=== PATIENT | female | born 1990 | race Caucasian/White ===

== ENCOUNTER 2016-07-15 14:24 | Emergency (ER) | payer OTHER ==
[2016-07-15 15:20] LABS: BASOPHIL % 0.4 % (0.0-0.4); Granulocytes % 58.3 % (36.0-66.0); Mean Corpuscular Hemoglobin 29.9 pg (26-32); Mean Platelet Volume 10.5 fl (6-9.5); Monocytes % 4.3 % (0.0-12.0); Platelet Count 219 K/mm3 (150-450); Red Blood Count 4.45 M/mm3 (4.1-5.4); White Blood Count 8.4 K/mm3 (4.0-10.5)
[2016-07-15 15:40] LABS: Collection Type CATH
[2016-07-15 15:41] LABS: COMPLETE URINE MICROSCOPIC? NO; Clue Cells Few
[2016-07-15 15:42] LABS: Bacteria Many; Trichomonas None Seen; Yeast None Seen
[2016-07-15] MEDS ORDERED: Pepcid 20 MG VIAL IV ONE (15:42)
[2016-07-15] MEDS ORDERED: solu-MEDROL 125 MG IV ONE (15:42)
[2016-07-15] MEDS ORDERED: EPINEPHRINE 1:1000 1 ML AMP IM ONE (15:42)
[2016-07-15] MEDS ORDERED: BENADRYL 50 MG/ML IV ONE (15:42)
[2016-07-15] MEDS ORDERED: Sodium Chloride 0.9% 1000 ML 1,000 ML IV STA (15:42)
[2016-07-15] MEDS ORDERED: ROCEPHIN 1 Gm-D5w 50 ml Bag** 50 ML IV ONE (15:47)
[2016-07-15] MEDS ORDERED: TORAdol 30 mg Injection IV ONE (15:48)
[2016-07-15] MEDS ORDERED: Rocephin 1000 MG INJ IM ONE (16:00)
[2016-07-15] MEDS ORDERED: TORAdol 30 mg Injection IM ONE (16:00)
[2016-07-15] MEDS ORDERED: Rocephin 1000 MG INJ ONE (16:05)
[2016-07-15] MEDS ORDERED: TORAdol 30 mg Injection ONE (16:05)
[2016-07-15] MEDS ORDERED: XYLOCAINE 1% HCL 20 ML MDV ONE (16:06)
--- NOTE | 2016-07-15 16:09 | ERPHSYRPT ---
- History of Present Illness Time Seen by Provider: 07/15/16 14:58 Source: patient Patient Subjective Stated Complaint: pt states 1 1/2 hrs ago she began having pelvic pain. denies any dysuria. Triage Nursing Assessment: pt pink, warm, dry. abdomen soft nontender. Physician History: CC: pelvic pain Hx: 25 y/o patient of Dr Forbes/M[facility]ela. She has mirena IUD in place. Had intercourse today. She has pain in pelvic area. Some vaginal discharge. No fever or chills. No V/D. Burning with urination. She has had prior gc/ct. Timing/Duration: today Activites at Onset: sexual activity Severity of Pain-Max: moderate Severity of Pain-Current: moderate Allergies/Adverse Reactions: miconazole nitrate [From Monistat 3] Allergy (Intermediate, Verified 07/15/16 14 :42) Swelling Home Medications: Ibuprofen 800 mg PO BID 04/07/16 [History] Oxycodone HCl [Oxaydo] 7.5 mg PO QID 04/07/16 [History] Promethazine HCl 12.5 mg PO UD 04/07/16 [History] Tizanidine HCl 4 mg [Zanaflex 4 MG] 4 mg PO BID 04/07/16 [History] Buprenorphine [Butrans] 1 each TD UD 07/15/16 [History] Hydroxychloroquine Sulfate [Plaquenil] 100 mg PO DAILY 07/15/16 [History] Hx Tetanus, Diphtheria Vaccination/Date Given: Yes (up to date) Hx Influenza Vaccination/Date Given: No Hx Pneumococcal Vaccination/Date Given: No - Review of Systems Constitutional: No Fever, No Chills Eyes: No Symptoms Ears, Nose, & Throat: No Symptoms Respiratory: No Cough Cardiac: No Chest Pain Abdominal/Gastrointestinal: Abdominal Pain (pelivc), No Nausea, No Vomiting, No Diarrhea Genitourinary Symptoms: Dysuria, Vaginal Discharge, No Skin: No Rash Neurological: No Headache All Other Systems: Reviewed and Negative - Past Medical History Pertinent Past Medical History: Yes Neurological History: No Pertinent History ENT History: No Pertinent History Cardiac History: No Pertinent History Respiratory History: No Pertinent History Endocrine Medical History: No Pertinent History Musculoskeletal History: No Pertinent History GI Medical History: Pancreatitis History: No Pertinent History Psycho-Social History: No Pertinent History Female Reproductive Disorders: No Pertinent History, Cervical Cancer Other Medical History: lupus - Past Surgical History Past Surgical History: Yes Neuro Surgical History: No Pertinent History Cardiac: No Pertinent History Respiratory: No Pertinent History Gastrointestinal: Cholecystectomy Genitourinary: No Pertinent History Musculoskeletal: No Pertinent History Female Surgical History: Other Other Surgical History: LEEP Procedure;. CERVICAL ABLATION - Social History Smoking Status: Current every day smoker How long have you smoked: 11 Exposure to second hand smoke: Yes Alcohol Use: Socially Drug Use: none Patient Lives Alone: No Significant Family History: no pertinent family hx - Female History Hx Last Menstrual Period: end jun 2016 Hx Now: Yes - Nursing Vital Signs Nursing Vital Signs: Initial Vital Signs Temperature 99.2 F Temperature Source Oral Pulse Rate 85 Respiratory Rate 18 Blood Pressure [Right Arm] 122/76 Pain Intensity 6 - Physical Exam General Appearance: alert Eye Exam: PERRL/EOMI Ears, Nose, Throat Exam: normal ENT inspection, moist mucous membranes Cardiovascular Exam: regular rate/rhythm Gastrointestinal/Abdomen Exam: soft, No tenderness, No distention Pelvic Exam: normal external exam, other (copious watery saunders vaginal discharge) Extremity Exam: normal inspection, normal range of motion Neurologic Exam: alert, oriented x 3, cooperative, sensation nml, No motor deficits Skin Exam: warm, dry, No rash SpO2 Interpretation: normal SpO2: 98 Oxygen Delivery: Room Air - Course Nursing assessment & vital signs reviewed: Yes - Radiology Ultrasound Exam pelvic Ultrasound: Other (culdesac fluid, IUD inside uterus but appears flipped, normal tubes and ovaries) Ordered Tests: Active Orders 24 hr Category Date Time Status Supervisor Hydrochloric Area STAT Care 07/15/16 15:42 Inactive IV Insertion STAT Care 07/15/16 15:42 Inactive Pulse Oximetry (ED) STAT Care 07/15/16 15:42 Inactive cath [Cath for Specimen-Straight] STAT Care 07/15/16 15:20 Active PELVIS TRANS VAGINAL [US] Stat Exams 07/15/16 15:14 Ordered CBC W DIFF Stat Lab 07/15/16 15:10 Completed CULTURE,URINE Stat Lab 07/15/16 15:25 Received HCG QUALITATIVE,SERUM Stat Lab 07/15/16 15:10 Completed Lactic Acid Urgent Lab 07/15/16 14:53 Completed UA Stat Lab 07/15/16 15:25 Results Wet Prep Stat Lab 07/15/16 15:25 Results Medication Summary Discontinued Medications Generic Name Dose Route Start Last Admin Trade Name Terrie PRN Reason Stop Dose Admin Diphenhydramine HCl 25 mg 07/15/16 15:42 Benadryl 50 Mg/Ml IV 07/15/16 15:43 STAT ONE Epinephrine HCl 0.3 mg 07/15/16 15:42 Epinephrine 1:1000 1 Ml Amp IM 07/15/16 15:43 STAT ONE Famotidine 20 mg 07/15/16 15:42 Pepcid 20 Mg Vial IV 07/15/16 15:43 STAT ONE Sodium Chloride 1,000 mls @ 999 mls/hr 07/15/16 15:42 Sodium Chloride 0.9% 1000 Ml IV 07/15/16 16:42 .Q1H1M STA Ceftriaxone Sodium/Dextrose 50 mls @ 100 mls/hr 07/15/16 15:47 Rocephin 1 Gm-D5w 50 Ml Bag IV 07/15/16 16:16 STAT ONE Ketorolac Tromethamine 30 mg 07/15/16 15:48 Toradol 30 Mg Injection IV 07/15/16 15:49 STAT ONE Ketorolac Tromethamine 60 mg 07/15/16 16:00 Toradol 30 Mg Injection IM 07/15/16 16:01 STAT ONE Methylprednisolone Sodium Succinate 125 mg 07/15/16 15:42 Solu-Medrol 125 Mg IV 07/15/16 15:43 STAT ONE Lab/Rad Data: Laboratory Result Diagrams 07/15/16 15:10 Laboratory Results 07/15/16 07/15/16 07/15/16 Range/Units 15:25 15:10 15:10 WBC 8.4 (4.0-10.5) K/mm3 RBC 4.45 (4.1-5.4) M/mm3 Hgb 13.3 (12.0-16.0) gm/dl Hct 39.6 (35-47) % MCV 89.0 (78-100) fl MCH 29.9 (26-32) pg MCHC 33.6 (32-36) g/dl RDW 12.0 (11.5-14.0) % Plt Count 219 (150-450) K/mm3 MPV 10.5 H (6-9.5) fl Gran % 58.3 (36.0-66.0) % Lymphocytes % 35.0 (24.0-44.0) % Monocytes % 4.3 (0.0-12.0) % Eosinophils % 2.0 (0.00-5.0) % Basophils % 0.4 (0.0-0.4) % Basophils # 0.03 (0-0.4) Lactic Acid (0.4-2.0) Serum , Qual NEGATIVE (Negative) Ur Collection Type CATH Urine Color YELLOW (YELLOW) Urine Appearance CLEAR (CLEAR) Urine pH 6.0 (5-6) Ur Specific [place] >=1.030 (1.005-1.025) Urine Protein NEGATIVE (Negative) Urine Glucose (UA) NEGATIVE (NEGATIVE) mg/dL Urine Ketones NEGATIVE (NEGATIVE) Urine Nitrite NEGATIVE (NEGATIVE) Urine Bilirubin NEGATIVE (NEGATIVE) Urine Urobilinogen 0.2 (0-1) mg/dL Urine WBC (Auto) NEGATIVE (NEGATIVE) Urine RBC (Auto) NEGATIVE (0-5) Murray/ul WBC (Wet Prep) Pending RBC (Wet Prep) Pending Epi Cells (Wet Prep) Few Bacteria (Wet Prep) Many Clue Cells (Wet Prep) Few Trichomonas (Wet Prep) None Seen Budding Yeast (Wet Prp) None Seen Specimen Received 07/15/16 1540 07/15/16 Range/Units 14:53 WBC (4.0-10.5) K/mm3 RBC (4.1-5.4) M/mm3 Hgb (12.0-16.0) gm/dl Hct (35-47) % MCV (78-100) fl MCH (26-32) pg MCHC (32-36) g/dl RDW (11.5-14.0) % Plt Count (150-450) K/mm3 MPV (6-9.5) fl Gran % (36.0-66.0) % Lymphocytes % (24.0-44.0) % Monocytes % (0.0-12.0) % Eosinophils % (0.00-5.0) % Basophils % (0.0-0.4) % Basophils # (0-0.4) Lactic Acid 0.9 (0.4-2.0) Serum , Qual (Negative) Ur Collection Type Urine Color (YELLOW) Urine Appearance (CLEAR) Urine pH (5-6) Ur Specific [place] (1.005-1.025) Urine Protein (Negative) Urine Glucose (UA) (NEGATIVE) mg/dL Urine Ketones (NEGATIVE) Urine Nitrite (NEGATIVE) Urine Bilirubin (NEGATIVE) Urine Urobilinogen (0-1) mg/dL Urine WBC (Auto) (NEGATIVE) Urine RBC (Auto) (0-5) Murray/ul WBC (Wet Prep) RBC (Wet Prep) Epi Cells (Wet Prep) Bacteria (Wet Prep) Clue Cells (Wet Prep) Trichomonas (Wet Prep) Budding Yeast (Wet Prp) Specimen Received - Progress Progress Note: 07/15/16 16:08 IM rocphin and toradol given. ADvised no intercourse. Rx flagyl and doxycycline. 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 Counseled pt/family regarding: diagnosis, need for follow-up - Departure Time of Disposition: 16:09 Departure Disposition: Home Clinical Impression: PID (acute pelvic inflammatory disease) Mechanical complication due to intrauterine contraceptive device Qualifiers: Mechanical complication type: other Encounter type: initial encounter Qualified Code(s): T83.39XA - Other mechanical complication of intrauterine contraceptive device, initial encounter Condition: Stable Critical Care Time: No Referrals: SAHIL FORBES MD [Primary Care Provider] - [facility] [NON-STAFF PHY W/O PRIVILEGES] - Instructions: Pelvic Inflammatory Disease Additional Instructions: No intercourse. Rx doxycycline. Rx flagyl. Ibuprofen for pain. You need to see gynecology next week for follow up. Prescriptions: Doxycycline Hyclate 100 mg [Vibramycin 100 MG] 100 mg PO BID #28 tab Metronidazole 500 mg [Flagyl 500 MG] 500 mg PO BID #28 tablet
[2016-07-15 16:23] VITALS: BP 124/60; PULSE 70; O2SAT 100
[2016-07-15 17:12] LABS: CHLAMYDIA DNA NEGATIVE
--- NOTE | 2016-07-15 22:36 | XRAY ---
Indication: Pain. Two-dimensional transvaginal only pelvic ultrasound was performed. Comparison: None Uterus is again anteverted today measuring 7.6 x 3.2 x 4.3 cm and appears homogeneous in echogenicity. There remains a IUD in the endometrial cavity with the distal portion in the fundus. No endometrial cavity mass or fluid collection. Right ovary measures 4.2 x 1.8 x 3.1 cm and the left measures 3.4 x 2.3 x 3.1 cm. Normal follicular cysts and perfusion bilaterally. No suspicious solid adnexal mass. Small cul-de-sac fluid presumed from ruptured/leaking cyst. Impression: New cul-de-sac fluid presumed from ruptured/leaking cyst. Remaining ovaries and uterus unremarkable again with IUD in situ. Comment: Preliminary report was given.
== END 2016-07-15 16:23 | disposition home or self-care (01) ==
LOC: ED 14:24
DX: N73.9 Female pelvic inflammatory disease, unspecified (principal); T83.39XA Other mechanical complication of intrauterine contraceptive device, initial encounter
CPT/HCPCS: 36415; 76830; 81002; 83605; 84703; 85025; 87086; 87210; 87490; 87590; 96372; 99284; J0696; J1885; P9612

== ENCOUNTER 2016-08-17 11:12 | Emergency (ER) | payer OTHER ==
[2016-08-17 11:17] VITALS: O2SAT 97
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
[2016-08-17 12:41] VITALS: BP 129/83; PULSE 82
== END 2016-08-17 12:40 | disposition home or self-care (01) ==
LOC: ED 11:12
DX: S39.012A Strain of muscle, fascia and tendon of lower back, initial encounter (principal); V63.5XXA Driver of heavy transport vehicle injured in collision with car, pick-up truck or van in traffic accident, initial encounter; M54.5 Low back pain
CPT/HCPCS: 72100; 72170; 80307; 99283

== ENCOUNTER 2017-02-21 16:12 | Emergency (ER) | payer OTHER ==
[2017-02-21] MEDS ORDERED: TORAdol 30 mg Injection IM ONE (16:29)
[2017-02-21] MEDS ORDERED: TORAdol 30 mg Injection ONE (16:32)
--- NOTE | 2017-02-21 16:34 | ERPHSYRPT ---
- History of Present Illness Time Seen by Provider: 02/21/17 16:26 Source: patient Exam Limitations: no limitations Patient Subjective Stated Complaint: PT REPORTS SUDDEN ONSET OF A POP IN HER RIGHT JAW WITH SEVERE PAIN-DENIES INJURY-DENIES ILLNESS Triage Nursing Assessment: PT FLUSHED WARM ET YOQ-YAHMA-ME HOLDING RIGHT JAW BUT NO S/S OF INJURY-NO DEFORMITY-NO BRUISING OR ABRASIONS Physician History: 26-year-old white female with history of pancreatitis cervical cancer lupus. Arrives with complaint of sudden onset of pain in the right side of her face and jaw symptoms while she was sleeping. Patient states she felt a pop and then began having the pain. She has pain with opening and closing her jaw. Past medical history includes pancreatitis, cervical cancer, lupus. Past surgical history includes cholecystectomy, LEEP, cervical ablation. Patient does see a pain weight control lecturer and takes belbucca Timing/Duration: today Severity: moderate Modifying Factors: Improves With: nothing Associated Symptoms: No nausea, No vomiting, No abdominal pain, No shortness of breath, No heartburn, No diaphoresis, No cough, No chills, No chest pain, No fever, No headaches, No loss of appetite, No malaise, No rash, No syncope, No seizure, No weakness Allergies/Adverse Reactions: codeine Allergy (Intermediate, Verified 02/21/17 16:18) Rash miconazole nitrate [From Monistat 3] Allergy (Intermediate, Verified 02/21/17 16 :18) Swelling Home Medications: Ibuprofen 800 mg PO BID PRN 04/07/16 [History] Promethazine HCl 12.5 mg PO UD PRN 04/07/16 [History] Tizanidine HCl 4 mg [Zanaflex 4 MG] 4 mg PO BID PRN 04/07/16 [History] Buprenorphine HCl [Belbuca] 450 mcg BC UD 02/21/17 [History] Hx Tetanus, Diphtheria Vaccination/Date Given: Yes Hx Influenza Vaccination/Date Given: No Hx Pneumococcal Vaccination/Date Given: No Immunizations Up to Date: Yes - Review of Systems Constitutional: No Fever, No Chills Eyes: No Symptoms Ears, Nose, & Throat: Mouth Pain, Other (pain right side of mouth and jaw), No Ear Pain, No Ear Discharge, No Hearing Changes, No Tinnitus, No Nose Pain, No Nose Congestion, No Nose Discharge, No Sinus Drainage, No Epistaxis, No Mouth Swelling, No Loose Teeth, No Throat Pain, No Throat Swelling, No Hoarse, No Painful Swallowing, No Snoring, No Stridor Respiratory: No Cough, No Dyspnea Cardiac: No Chest Pain, No Edema, No Syncope Abdominal/Gastrointestinal: No Abdominal Pain, No Nausea, No Vomiting, No Diarrhea Genitourinary Symptoms: No Dysuria Musculoskeletal: No Back Pain, No Neck Pain Skin: No Rash Neurological: No Dizziness, No Focal Weakness, No Sensory Changes Psychological: No Symptoms Endocrine: No Symptoms All Other Systems: Reviewed and Negative - Past Medical History Pertinent Past Medical History: Yes Neurological History: No Pertinent History ENT History: No Pertinent History Cardiac History: No Pertinent History Respiratory History: No Pertinent History Endocrine Medical History: No Pertinent History Musculoskeletal History: No Pertinent History GI Medical History: Pancreatitis History: No Pertinent History Psycho-Social History: No Pertinent History Female Reproductive Disorders: No Pertinent History, Cervical Cancer Other Medical History: lupus - Past Surgical History Past Surgical History: Yes Neuro Surgical History: No Pertinent History Cardiac: No Pertinent History Respiratory: No Pertinent History Gastrointestinal: Cholecystectomy Genitourinary: No Pertinent History Musculoskeletal: No Pertinent History Female Surgical History: Other Other Surgical History: LEEP Procedure;. CERVICAL ABLATION - Social History Smoking Status: Current every day smoker How long have you smoked: 11 Exposure to second hand smoke: Yes Alcohol Use: Socially Drug Use: none Patient Lives Alone: No Significant Family History: no pertinent family hx - Female History Hx Last Menstrual Period: 2 WKS AGO Hx Now: Yes - Nursing Vital Signs Nursing Vital Signs: Initial Vital Signs Temperature 98.7 F 02/21/17 16:13 Pulse Rate 97 H 02/21/17 16:13 Respiratory Rate 20 02/21/17 16:13 Blood Pressure 111/48 02/21/17 16:13 O2 Sat by Pulse Oximetry 98 02/21/17 16:13 Pain Scale Pain Intensity 5 - Physical Exam General Appearance: moderate distress, alert Eye Exam: PERRL/EOMI, eyes nml inspection Ears, Nose, Throat Exam: TMs normal, pharynx normal, other (right side of jaw and face tender with palpation and opening and closing jaw no clicks) Neck Exam: normal inspection, non-tender, supple, full range of motion Respiratory Exam: normal breath sounds, lungs clear, No respiratory distress Cardiovascular Exam: regular rate/rhythm, normal heart sounds, normal peripheral pulses Gastrointestinal/Abdomen Exam: soft, normal bowel sounds, No tenderness, No mass Back Exam: normal inspection, normal range of motion, No CVA tenderness, No vertebral tenderness Extremity Exam: normal inspection, normal range of motion, pelvis stable Neurologic Exam: alert, oriented x 3, cooperative, normal mood/affect, nml cerebellar function, nml station & gait, sensation nml, No motor deficits Skin Exam: normal color, warm, dry, No rash Lymphatic Exam: No adenopathy SpO2 Interpretation: normal (98%) SpO2: 98 Oxygen Delivery: Room Air - Course Nursing assessment & vital signs reviewed: Yes - Radiology Exams Other X-ray Interpretation: Discussed w/ radiologist (x-ray of the mandible: 4 view of the mandible demonstrates crowding of the upper posterior molar teeth bilaterally. No other bony, articular, or soft tissue abnormalities) Ordered Tests: Active Orders 24 hr Category Date Time Status MANDIBLE (MINIMUM 4 VIEWS) Stat Exams 02/21/17 Completed Medication Summary Discontinued Medications Generic Name Dose Route Start Last Admin Trade Name Terrie PRN Reason Stop Dose Admin Ketorolac Tromethamine 60 mg 02/21/17 16:29 02/21/17 16:38 Toradol 30 Mg Injection IM 02/21/17 16:30 60 mg STAT ONE Administration Ketorolac Tromethamine Confirm 02/21/17 16:32 Toradol 30 Mg Injection Administered 02/21/17 16:33 Dose 60 mg .ROUTE .STK-MED ONE Morphine Sulfate 4 mg 02/21/17 17:14 02/21/17 17:17 Morphine Sulfate 4 Mg Inj IV 02/21/17 17:15 4 mg STAT ONE Administration Morphine Sulfate Confirm 02/21/17 17:16 Morphine Sulfate 4 Mg Inj Administered 02/21/17 17:17 Dose 4 mg .ROUTE .STK-MED ONE - Progress Progress: improved Progress Note: 02/21/17 17:05 26-year-old white female with history of pancreatitis cervical cancer lupus Arrives with sudden onset of pain in the right side of her jaw and right face she states she felt a pop been experiencing this pain. Patient is given Toradol in the emergency room patient is onBelbucca from her pain weight control lecturer. Patient does states she is starting to feel better after receiving the Toradol. She states she has a temporary filling in one of her teeth. X-rays of her mandible show crowding of the upper posterior molar teeth bilaterally no other bony, articular, or soft tissue abnormalities are noted. I do not see any obvious tooth fractures. Patient does state that she had a temporary filling placed by her dentist, she states that she plans to see her dentist on 2 days from now Will plan to discharge patient. Cold packs to areas posteriorly Pain medication as prescribed by your pain weight control lecturer. Patient also will be advised to take Advil (OTC) 2-3 tablets orally every 6 hours with food as needed. Patient was offered morphine injection here in the emergency room she does not want this. - Departure Time of Disposition: 17:08 Departure Disposition: Home Clinical Impression: Jaw pain Condition: Fair Critical Care Time: No Referrals: SAHIL FORBES MD [Primary Care Provider] - Additional Instructions: Return home. Cold packs to areas 24-48 hours (externally) Advil OTC 2-3 tablets orally every 6 hours as needed Balbucca as prescribed by your pain weight control lecturer or family . Follow-up with your dentist. Return for acute distress or for severe symptoms soft foods 48 hours
--- NOTE | 2017-02-21 17:00 | XRAY ---
Indication: Right mandibular pain. No known injury. Comparison: None 4 views of the mandible demonstrates crowding of the upper posterior molar teeth bilaterally. No other bony, articular, or soft tissue abnormalities.
[2017-02-21] MEDS ORDERED: MORPHINE SULFATE 4 MG INJ IV ONE (17:14)
[2017-02-21] MEDS ORDERED: MORPHINE SULFATE 4 MG INJ ONE (17:16)
[2017-02-21 17:44] VITALS: BP 134/66; PULSE 90
[2017-02-21 18:17] VITALS: O2SAT 98
== END 2017-02-21 18:05 | disposition home or self-care (01) ==
LOC: ED 16:12
DX: R68.84 Jaw pain (principal)
CPT/HCPCS: 70110; 96372; 96374; 99284; J1885; J2270

== ENCOUNTER 2017-03-22 19:03 | Emergency (ER) | payer OTHER ==
--- NOTE | 2017-03-22 19:38 | ERPHSYRPT ---
- History of Present Illness Time Seen by Provider: 03/22/17 19:31 Historian: patient Exam Limitations: no limitations Patient Subjective Stated Complaint: pt co no bm for a month, and unable to void since last night, pt has had constipation before. has surg last week by dr blackman Triage Nursing Assessment: pt alert, walked in, resp easy,skin w/d pink.abd pain , no fever, Physician History: This 26-year-old white female with history of pancreatitis, cervical cancer, lupus, constipation She arrives with complaints that she has not had a bowel movement for a month she states she's been unable to urinate since yesterday. Patient has no vomiting no fevers is not complaining of abdominal pain. Past medical history includes pancreatitis, cervical cancer, lupus, constipation. Past surgical history includes LEEP, cervical ablation, patient has had recent cystectomy for ovarian cyst. Timing/Duration: other (patient states no bowel movement for a month, no urine since yesterday) Activities at Onset: none Severity of Pain-Max: mild Severity of Pain-Current: none Modifying Factors: Improves With: nothing Associated Symptoms: No back, No chest pain, No diaphoresis, No diarrhea, No fever/chills, No fatigue, No headache, No heartburn, No loss of appetite, No nausea, No neck pain, No rash, No shortness of breath, No syncope, No vomiting Previous symptoms: same symptoms as today Allergies/Adverse Reactions: codeine Allergy (Intermediate, Verified 03/22/17 19:17) Rash miconazole nitrate [From Monistat 3] Allergy (Intermediate, Verified 03/22/17 19 :17) Swelling buprenorphine [From Butrans] Allergy (Verified 03/22/17 19:17) Home Medications: Promethazine HCl 12.5 mg PO UD PRN 04/07/16 [History] Ondansetron HCl [Zofran] 4 mg DAILY 03/22/17 [History] Hx Tetanus, Diphtheria Vaccination/Date Given: Yes Hx Influenza Vaccination/Date Given: No Hx Pneumococcal Vaccination/Date Given: No Immunizations Up to Date: Yes - Review of Systems Constitutional: No Fever, No Chills Eyes: No Symptoms Ears, Nose, & Throat: No Symptoms Respiratory: No Cough, No Dyspnea Cardiac: No Chest Pain, No Edema, No Syncope Abdominal/Gastrointestinal: Constipation Genitourinary Symptoms: No Dysuria Musculoskeletal: No Back Pain, No Neck Pain Skin: No Rash Neurological: No Dizziness, No Focal Weakness, No Sensory Changes Psychological: No Symptoms Endocrine: No Symptoms All Other Systems: Reviewed and Negative - Past Medical History Pertinent Past Medical History: Yes Neurological History: No Pertinent History ENT History: No Pertinent History Cardiac History: No Pertinent History Respiratory History: No Pertinent History Endocrine Medical History: No Pertinent History Musculoskeletal History: No Pertinent History GI Medical History: Pancreatitis, Other History: No Pertinent History Psycho-Social History: No Pertinent History Female Reproductive Disorders: No Pertinent History, Cervical Cancer Other Medical History: lupus, constipation - Past Surgical History Past Surgical History: Yes Neuro Surgical History: No Pertinent History Cardiac: No Pertinent History Respiratory: No Pertinent History Gastrointestinal: Cholecystectomy Genitourinary: No Pertinent History Musculoskeletal: No Pertinent History, Amputation Female Surgical History: Other Other Surgical History: LEEP Procedure;. CERVICAL ABLATION - Social History Smoking Status: Current every day smoker How long have you smoked: 11 Exposure to second hand smoke: Yes Alcohol Use: Socially Drug Use: none Patient Lives Alone: No Significant Family History: no pertinent family hx - Female History Hx Last Menstrual Period: feb Hx Now: Yes - Nursing Vital Signs Nursing Vital Signs: Initial Vital Signs Temperature 97.9 F 03/22/17 19:11 Pulse Rate 68 03/22/17 19:11 Respiratory Rate 16 03/22/17 19:11 Blood Pressure 149/98 03/22/17 19:11 O2 Sat by Pulse Oximetry 98 03/22/17 19:11 Pain Scale Pain Intensity 5 - Physical Exam General Appearance: no apparent distress, alert Eye Exam: PERRL/EOMI, eyes nml inspection Ears, Nose, Throat Exam: normal ENT inspection, pharynx normal, moist mucous membranes Neck Exam: normal inspection, non-tender, supple, full range of motion Respiratory Exam: normal breath sounds, lungs clear, No respiratory distress Cardiovascular Exam: regular rate/rhythm, normal heart sounds Rectal Exam: normal rectal tone, other (normal rectal exam no stool obtained) Back Exam: normal inspection, normal range of motion, No CVA tenderness, No vertebral tenderness Extremity Exam: normal inspection, normal range of motion, pelvis stable Neurologic Exam: alert, oriented x 3, cooperative, normal mood/affect, nml cerebellar function, sensation nml, No motor deficits Skin Exam: normal color, warm, dry SpO2 Interpretation: normal (98%) SpO2: 98 Oxygen Delivery: Room Air - Radiology Exams Abdomen X-ray Interpretation: Reviewed by me, Other (3 view abdomen, mild fecal stasis , no obstruction, normal chest) Ordered Tests: Active Orders 24 hr Category Date Time Status Clean Catch Urine Specimen STAT Care 03/22/17 20:47 Active IV Insertion STAT Care 03/22/17 19:30 Active OBSTR/ACUTE ABDOMEN SERIES Stat Exams 03/22/17 20:38 Taken CBC W DIFF Stat Lab 03/22/17 19:40 Completed CMP Stat Lab 03/22/17 19:40 Completed HCG QUALITATIVE,SERUM Stat Lab 03/22/17 20:00 Completed UA W/RFX UR CULTURE Stat Lab 03/22/17 19:40 Completed Lab/Rad Data: Laboratory Result Diagrams 03/22/17 19:40 03/22/17 19:40 Laboratory Results 03/22/17 03/22/17 03/22/17 Range/Units 20:00 19:40 19:40 WBC (4.0-10.5) K/mm3 RBC (4.1-5.4) M/mm3 Hgb (12.0-16.0) gm/dl Hct (35-47) % MCV (78-100) fl MCH (26-32) pg MCHC (32-36) g/dl RDW (11.5-14.0) % Plt Count (150-450) K/mm3 MPV (6-9.5) fl Gran % (36.0-66.0) % Lymphocytes % (24.0-44.0) % Monocytes % (0.0-12.0) % Eosinophils % (0.00-5.0) % Basophils % (0.0-0.4) % Basophils # (0-0.4) Sodium 140 (136-145) mEq/L Potassium 3.8 (3.5-5.1) mEq/L Chloride 106 (98-107) mEq/L Carbon Dioxide 25.3 (21-32) mEq/L Anion Gap 12.2 (5-15) MEQ/L BUN 18 (9-20) mg/dL Creatinine 0.98 (0.55-1.30) mg/dl Estimated GFR > 60 ML/MIN Glucose 81 (70-110) MG/DL Calcium 9.0 (8.5-10.1) mg/dL Total Bilirubin 0.30 (0.2-1.0) mg/dL AST 21 (15-37) U/L ALT 43 (12-78) U/L Alkaline Phosphatase 98 (46-116) U/L Serum Total Protein 7.1 (6.4-8.2) gm/dL Albumin 4.2 (3.4-5.0) g/dL Serum , Qual NEGATIVE (Negative) Ur Collection Type CLEAN CATCH Urine Color YELLOW (YELLOW) Urine Appearance CLEAR (CLEAR) Urine pH 6.0 (5-6) Ur Specific [place] 1.015 (1.005-1.025) Urine Protein NEGATIVE (Negative) Urine Ketones NEGATIVE (NEGATIVE) Urine Blood NEGATIVE (0-5) Murray/ul Urine Nitrite NEGATIVE (NEGATIVE) Urine Bilirubin NEGATIVE (NEGATIVE) Urine Urobilinogen NORMAL (0-1) mg/dL Ur Leukocyte Esterase NEGATIVE (NEGATIVE) Urine Culture Reflexed NO (NO) Urine Glucose NEGATIVE (NEGATIVE) mg/dL Specimen Received 03/22/17 1940 03/22/17 Range/Units 19:40 WBC 15.0 H (4.0-10.5) K/mm3 RBC 4.87 (4.1-5.4) M/mm3 Hgb 14.5 (12.0-16.0) gm/dl Hct 44.0 (35-47) % MCV 90.3 (78-100) fl MCH 29.8 (26-32) pg MCHC 33.0 (32-36) g/dl RDW 12.7 (11.5-14.0) % Plt Count 231 (150-450) K/mm3 MPV 10.4 H (6-9.5) fl Gran % 73.8 H (36.0-66.0) % Lymphocytes % 21.5 L (24.0-44.0) % Monocytes % 3.7 (0.0-12.0) % Eosinophils % 0.8 (0.00-5.0) % Basophils % 0.2 (0.0-0.4) % Basophils # 0.03 (0-0.4) Sodium (136-145) mEq/L Potassium (3.5-5.1) mEq/L Chloride (98-107) mEq/L Carbon Dioxide (21-32) mEq/L Anion Gap (5-15) MEQ/L BUN (9-20) mg/dL Creatinine (0.55-1.30) mg/dl Estimated GFR ML/MIN Glucose (70-110) MG/DL Calcium (8.5-10.1) mg/dL Total Bilirubin (0.2-1.0) mg/dL AST (15-37) U/L ALT (12-78) U/L Alkaline Phosphatase (46-116) U/L Serum Total Protein (6.4-8.2) gm/dL Albumin (3.4-5.0) g/dL Serum , Qual (Negative) Ur Collection Type Urine Color (YELLOW) Urine Appearance (CLEAR) Urine pH (5-6) Ur Specific [place] (1.005-1.025) Urine Protein (Negative) Urine Ketones (NEGATIVE) Urine Blood (0-5) Murray/ul Urine Nitrite (NEGATIVE) Urine Bilirubin (NEGATIVE) Urine Urobilinogen (0-1) mg/dL Ur Leukocyte Esterase (NEGATIVE) Urine Culture Reflexed (NO) Urine Glucose (NEGATIVE) mg/dL Specimen Received - Progress Progress: improved Progress Note: 03/22/17 21:11 This patient states she has not had a bowel movement in 30 days she states she was unable to urinate yesterday. On physical examination abdomen is soft flat nontender normal bowel sounds. Rectal normal sphincter tone no stool palpated. Acute abdomen series nonobstructive pattern mild fecal stasis chest x-ray unremarkable. Labs urinalysis unremarkable CBC white count 15,000 hemoglobin 14.5 hematocrit 44 platelets 231 Chemistry within normal limits. Patient has had a recent abdominal surgery.. Abdomen does not appear to be acute. 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 Consider clear liquids only tonight. . - Departure Time of Disposition: 21:13 Departure Disposition: Home Clinical Impression: Difficulty urinating Constipation Qualifiers: Constipation type: unspecified constipation type Qualified Code(s): K59.00 - Constipation, unspecified Condition: Fair Critical Care Time: No Referrals: SAHIL FORBES MD [Primary Care Provider] - Instructions: Constipation Additional Instructions: Return home. Plenty of fluids clear fluids 24-48 hours if abdominal pain constipation. Continue Miralax, Dulcolax, Follow-up with your family doctor or bottling line operator call tomorrow to schedule appointment. Return for acute distress or for severe symptoms.
[2017-03-22 19:46] LABS: Collection Type CLEAN CATCH
[2017-03-22 19:48] LABS: ADD URINE CULTURE? NO (NO); Bilirubin NEGATIVE (NEGATIVE); Blood NEGATIVE Ery/ul (0-5); COMPLETE URINE MICROSCOPIC? NO; Glucose NEGATIVE (NEGATIVE); Leukocyte Esterase NEGATIVE (NEGATIVE)
[2017-03-22 20:10] LABS: BASOPHIL % 0.2 % (0.0-0.4); Eosinophil % 0.8 % (0.00-5.0); Granulocytes % 73.8 % (36.0-66.0); Lymphocytes % 21.5 % (24.0-44.0); Mean Cell Volume 90.3 fl (78-100); Mean Corpuscular Hemoglobin 29.8 pg (26-32); Mean Platelet Volume 10.4 fl (6-9.5); Monocytes % 3.7 % (0.0-12.0); Platelet Count 231 K/mm3 (150-450); Red Blood Count 4.87 M/mm3 (4.1-5.4); Red Cell Distribution Width 12.7 % (11.5-14.0)
[2017-03-22 20:34] LABS: ALBUMIN 4.2 g/dL (3.4-5.0); ALKALINE PHOSPHATASE 98 U/L (46-116); ANION GAP 12.2 MEQ/L (5-15); BLOOD UREA NITROGEN 18 mg/dL (9-20); CHLORIDE 106 mEq/L (98-107); Carbon Dioxide 25.3 mEq/L (21-32); Glucose 81 MG/DL (70-110); Potassium 3.8 mEq/L (3.5-5.1); SGOT/AST 21 U/L (15-37); SGPT/ALT 43 U/L (12-78); SODIUM 140 mEq/L (136-145); Total Protein 7.1 gm/dL (6.4-8.2)
[2017-03-22 20:51] VITALS: O2SAT 99
[2017-03-22 21:18] VITALS: BP 125/75; PULSE 72
--- NOTE | 2017-03-23 09:00 | XRAY ---
Indication: Constipation. Comparison: None 2 views of the abdomen nonacute and nonobstructed with mild scattered colonic fecal debris. Previous cholecystectomy. Remaining solid organs are unremarkable. Osseous structures intact with mild double curvature thoracolumbar scoliosis. Single PA chest demonstrates normal heart and lungs. Impression: 1. Mild fecal stasis without obstruction. 2. Normal 1 view chest.
== END 2017-03-22 21:23 | disposition home or self-care (01) ==
LOC: ED 19:03
DX: K59.00 Constipation, unspecified (principal); R39.198 Other difficulties with micturition
CPT/HCPCS: 36000; 36415; 74022; 80053; 81002; 84703; 85025; 99283; 99284

== ENCOUNTER 2017-07-25 16:14 | Emergency (ER) | payer OTHER ==
[2017-07-25] MEDS ORDERED: Vistaril 50 MG/ML IM ONE (17:16)
--- NOTE | 2017-07-25 17:16 | ERPHSYRPT ---
- History of Present Illness Time Seen by Provider: 07/25/17 16:57 Source: patient Patient Subjective Stated Complaint: stated has numbness down left arm, breast, leg. no c/o pain. no injury. 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 Physician History: CC: dizziness Hx: 27 y/o patient with hx of lupus and smoking. She has recently been treated for MRSA skin infection left chest/abd. It is improved. She saw her doctor today at 1:30 and had a steroid injection for lupus. She also uses buprenex patch. She was in the office and had a feeling of dizziness before the injection , worse after the injection. While riding home she began to feel hot. She had headache and left arm/leg numbness. Some weakness of the left arm. It is now intermittent. No fall or injury. She has not had these symptoms in the past. No chest pain. No abd pain. Took negative home preg test this AM as she had felt hormonal. 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 She thought she might be allergic to took some benadryl earlier in the afternoon. Symptoms onset 1:30PM. Timing/Duration: today Severity: mild, moderate Allergies/Adverse Reactions: codeine Allergy (Intermediate, Verified 03/22/17 19:17) Rash miconazole nitrate [From Monistat 3] Allergy (Intermediate, Verified 03/22/17 19 :17) Swelling buprenorphine [From Butrans] Allergy (Verified 03/22/17 19:17) Home Medications: Promethazine HCl 12.5 mg PO UD PRN 04/07/16 [History] Ondansetron HCl [Zofran] 4 mg DAILY 03/22/17 [History] Buprenorphine HCl [Belbuca] 600 mcg BC BID 07/25/17 [History] Meloxicam [Mobic] 15 mg PO DAILY PRN PRN 07/25/17 [History] Prednisone 10 mg PO DAILY 07/25/17 [History] Hx Tetanus, Diphtheria Vaccination/Date Given: No Hx Influenza Vaccination/Date Given: Yes Hx Pneumococcal Vaccination/Date Given: No Immunizations Up to Date: Yes - Review of Systems Constitutional: Other (feels hot flashes), No Fever, No Chills Eyes: Vision Changes (tunnel vision like dizzy) Ears, Nose, & Throat: No Symptoms Respiratory: No Cough, No Dyspnea Cardiac: No Chest Pain, No Palpitations, No Syncope Abdominal/Gastrointestinal: Nausea, No Abdominal Pain, No Vomiting, No Diarrhea Genitourinary Symptoms: No Symptoms Skin: No Rash Neurological: Dizziness, Focal Weakness, Headache, Parasthesia All Other Systems: Reviewed and Negative - Past Medical History Pertinent Past Medical History: Yes Neurological History: No Pertinent History ENT History: No Pertinent History Cardiac History: No Pertinent History Respiratory History: No Pertinent History Endocrine Medical History: No Pertinent History Musculoskeletal History: No Pertinent History GI Medical History: Pancreatitis, Other History: No Pertinent History Psycho-Social History: No Pertinent History Female Reproductive Disorders: No Pertinent History Other Medical History: lupus, constipation - Past Surgical History Past Surgical History: Yes Neuro Surgical History: No Pertinent History Cardiac: No Pertinent History Respiratory: No Pertinent History Gastrointestinal: Cholecystectomy Genitourinary: No Pertinent History Musculoskeletal: No Pertinent History Female Surgical History: Other Other Surgical History: LEEP Procedure;. CERVICAL ABLATION - Social History Smoking Status: Current every day smoker How long have you smoked: 11 Exposure to second hand smoke: Yes Alcohol Use: Socially Drug Use: none Patient Lives Alone: No Significant Family History: no pertinent family hx - Female History Hx Last Menstrual Period: 1 week ago Hx Now: No - Nursing Vital Signs Nursing Vital Signs: Initial Vital Signs Temperature 98.6 F 07/25/17 16:14 Pulse Rate 91 H 07/25/17 16:14 Respiratory Rate 16 07/25/17 16:14 Blood Pressure 153/90 07/25/17 16:14 O2 Sat by Pulse Oximetry 100 07/25/17 16:14 Pain Scale Pain Intensity 3 - Physical Exam General Appearance: alert Eye Exam: PERRL/EOMI, other (no nystagmus) Ears, Nose, Throat Exam: normal ENT inspection, moist mucous membranes Neck Exam: normal inspection, non-tender, supple Respiratory Exam: normal breath sounds, lungs clear Cardiovascular Exam: regular rate/rhythm Gastrointestinal/Abdomen Exam: soft, No tenderness, No distention Back Exam: normal inspection, No vertebral tenderness Extremity Exam: normal inspection, normal range of motion Neurologic Exam: alert, oriented x 3, cooperative, 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 Mild weakness left arm. No weakness left leg.) Skin Exam: warm, dry, No rash SpO2 Interpretation: normal SpO2: 100 Oxygen Delivery: Room Air - Course Nursing assessment & vital signs reviewed: Yes EKG Interpreted by Me: RATE (81), Sinus Rhythm, NORMAL AXIS, NORMAL INTERVALS ( QTc 413), NORMAL QRS, NORMAL ST-T - Radiology Exams cxr X-ray Interpretation: Reviewed by me, Negative, Nml Mediastinum Ordered Tests: Active Orders 24 hr Category Date Time Status Cash Specialist STAT Care 07/25/17 17:06 Active EKG-ER Only STAT Care 07/25/17 17:06 Active IV Insertion STAT Care 07/25/17 17:06 Active NPO (ED) STAT Care 07/25/17 17:06 Active Pulse Oximetry (ED) STAT Care 07/25/17 17:06 Active CHEST 1 VIEW (PORTABLE) Stat Exams 07/25/17 17:06 Taken HEAD WITHOUT CONTRAST [CT] Stat Exams 07/25/17 17:06 Taken CBC W DIFF Stat Lab 07/25/17 17:15 Completed CMP Stat Lab 07/25/17 17:15 Completed HCG QUALITATIVE,SERUM Stat Lab 07/25/17 17:15 Completed PROTIME WITH INR Stat Lab 07/25/17 17:15 Completed PTT Stat Lab 07/25/17 17:15 Completed SED RATE [Erythrocyte Sedimentation Rate] Stat Lab 07/25/17 17:15 Completed Medication Summary Discontinued Medications Generic Name Dose Route Start Last Admin Trade Name Freq PRN Reason Stop Dose Admin Hydroxyzine HCl 25 mg 07/25/17 17:16 07/25/17 17:23 Vistaril 50 Mg/Ml IM 07/25/17 17:17 25 mg STAT ONE Administration Hydroxyzine HCl Confirm 07/25/17 17:20 Vistaril 100mg/2ml Administered 07/25/17 17:21 Dose 100 mg IM .STK-MED ONE Ketorolac Tromethamine 30 mg 07/25/17 19:02 07/25/17 19:11 Toradol 30 Mg Injection IV 07/25/17 19:03 30 mg STAT ONE Administration Ketorolac Tromethamine Confirm 07/25/17 19:10 Toradol 30 Mg Injection Administered 07/25/17 19:11 Dose 30 mg .ROUTE .STK-MED ONE Metoclopramide HCl 5 mg 07/25/17 19:02 07/25/17 19:12 Reglan 10 Mg/2 Ml IV 07/25/17 19:03 5 mg STAT ONE Administration Metoclopramide HCl Confirm 07/25/17 19:10 Reglan 10 Mg/2 Ml Administered 07/25/17 19:11 Dose 10 mg .ROUTE .STK-MED ONE Lab/Rad Data: Laboratory Result Diagrams 07/25/17 17:15 07/25/17 17:15 Laboratory Results 07/25/17 07/25/17 07/25/17 Range/Units 17:15 17:15 17:15 WBC (4.0-10.5) K/mm3 RBC (4.1-5.4) M/mm3 Hgb (12.0-16.0) gm/dl Hct (35-47) % MCV (78-100) fl MCH (26-32) pg MCHC (32-36) g/dl RDW (11.5-14.0) % Plt Count (150-450) K/mm3 MPV (6-9.5) fl Gran % (36.0-66.0) % Lymphocytes % (24.0-44.0) % Monocytes % (0.0-12.0) % Eosinophils % (0.00-5.0) % Basophils % (0.0-0.4) % Basophils # (0-0.4) ESR 3 (0-20) mm/hr INR 0.86 (0.8-3.0) APTT 30.5 (25.3-37.0) SECONDS Sodium (137-145) mmol/L Potassium (3.5-5.1) mmol/L Chloride (98-107) mmol/L Carbon Dioxide (22-30) mmol/L Anion Gap (5-15) MEQ/L BUN (7-17) mg/dL Creatinine (0.52-1.04) mg/dL Estimated GFR ML/MIN Glucose (74-106) mg/dL Calcium (8.4-10.2) mg/dL Total Bilirubin (0.2-1.3) mg/dL AST (14-36) U/L ALT (0-35) U/L Alkaline Phosphatase (38-126) U/L Serum Total Protein (6.3-8.2) g/dL Albumin (3.5-5.0) g/dL Serum , Qual NEGATIVE (Negative) 07/25/17 07/25/17 Range/Units 17:15 17:15 WBC 13.3 H (4.0-10.5) K/mm3 RBC 5.07 (4.1-5.4) M/mm3 Hgb 15.7 (12.0-16.0) gm/dl Hct 46.1 (35-47) % MCV 90.9 (78-100) fl MCH 31.0 (26-32) pg MCHC 34.1 (32-36) g/dl RDW 13.1 (11.5-14.0) % Plt Count 292 (150-450) K/mm3 MPV 9.4 (6-9.5) fl Gran % 52.5 (36.0-66.0) % Lymphocytes % 37.3 (24.0-44.0) % Monocytes % 5.2 (0.0-12.0) % Eosinophils % 4.7 (0.00-5.0) % Basophils % 0.3 (0.0-0.4) % Basophils # 0.04 (0-0.4) ESR (0-20) mm/hr INR (0.8-3.0) APTT (25.3-37.0) SECONDS Sodium 138 (137-145) mmol/L Potassium 4.2 (3.5-5.1) mmol/L Chloride 97 L (98-107) mmol/L Carbon Dioxide 32 H (22-30) mmol/L Anion Gap 13.2 (5-15) MEQ/L BUN 12 (7-17) mg/dL Creatinine 0.76 (0.52-1.04) mg/dL Estimated GFR > 60 ML/MIN Glucose 84 (74-106) mg/dL Calcium 9.8 (8.4-10.2) mg/dL Total Bilirubin 0.20 (0.2-1.3) mg/dL AST 29 (14-36) U/L ALT 38 H (0-35) U/L Alkaline Phosphatase 104 (38-126) U/L Serum Total Protein 7.4 (6.3-8.2) g/dL Albumin 4.4 (3.5-5.0) g/dL Serum , Qual (Negative) - Progress Progress Note: 07/25/17 18:55 CT head: edith 5:53 PM 07/25/2017: stable normal CT head compared to 11/16/14. 07/25/17 19:03 She has no dizziness. No numbness or weakness. She still has headache. Will give toradol and reglan. Stroke not suspected. She has lupus but ESR is normal. Jeffrey complicated migraine? Will release after treatment with instr. 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 07/25/17 19:25 Will release home. NIH score 0. Advised she call her family doctor Krissy Mix tomorrow for follow up. Counseled pt/family regarding: lab results, diagnosis, need for follow-up, rad results - Departure Time of Disposition: 19:26 Departure Disposition: Home Clinical Impression: Complicated migraine Condition: Stable Critical Care Time: No Referrals: BONITA COTTO MD [Primary Care Provider] - Instructions: Migraine Headache (DC), Paresthesias (DC) Additional Instructions: No driving tonite and stay with family. Return for problems or concerns. Call your family doctor tomorrow to arrange close follow up.
[2017-07-25] MEDS ORDERED: VISTARIL 100MG/2ML IM ONE (17:20)
[2017-07-25 17:25] LABS: BASOPHIL % 0.3 % (0.0-0.4); Basophil (Absolute #) 0.04 (0-0.4); Eosinophil % 4.7 % (0.00-5.0); Eosinophil (Absolute #) 0.62 (0-0.5); Granulocyte Absolute (ANC) 6.98 (1.4-6.9); Granulocytes % 52.5 % (36.0-66.0); Hematocrit 46.1 % (35-47); Hemoglobin 15.7 gm/dl (12.0-16.0); Lymphocyte (Absolute #) 4.95 (1.0-4.6); Lymphocytes % 37.3 % (24.0-44.0); Mean Cell Volume 90.9 fl (78-100); Mean Corpuscular Hgb Concent. 34.1 g/dl (32-36); Mean Platelet Volume 9.4 fl (6-9.5); Monocyte (Absolute #) 0.69 (0.0-1.3); Monocytes % 5.2 % (0.0-12.0); Platelet Count 292 K/mm3 (150-450); Red Blood Count 5.07 M/mm3 (4.1-5.4); Red Cell Distribution Width 13.1 % (11.5-14.0); White Blood Count 13.3 K/mm3 (4.0-10.5)
[2017-07-25 17:55] LABS: INR 0.86 (0.8-3.0)
[2017-07-25 17:57] LABS: PTT 30.5 SECONDS (25.3-37.0)
[2017-07-25 18:01] LABS: ALBUMIN 4.4 g/dL (3.5-5.0); ALKALINE PHOSPHATASE 104 U/L (38-126); ANION GAP 13.2 MEQ/L (5-15); BLOOD UREA NITROGEN 12 mg/dL (7-17); CHLORIDE 97 mmol/L (98-107); Calcium 9.8 mg/dL (8.4-10.2); Carbon Dioxide 32 mmol/L (22-30); Creatinine 1 0.76 mg/dL (0.52-1.04); Glucose 84 mg/dL (74-106); Potassium 4.2 mmol/L (3.5-5.1); SGOT/AST 29 U/L (14-36); SGPT/ALT 38 U/L (0-35); SODIUM 138 mmol/L (137-145); Total Protein 7.4 g/dL (6.3-8.2)
[2017-07-25] MEDS ORDERED: Reglan 10 MG/2 ML IV ONE (19:02)
[2017-07-25] MEDS ORDERED: TORAdol 30 mg Injection IV ONE (19:02)
[2017-07-25] MEDS ORDERED: TORAdol 30 mg Injection ONE (19:10)
[2017-07-25] MEDS ORDERED: Reglan 10 MG/2 ML ONE (19:10)
[2017-07-25 19:34] VITALS: BP 133/73; PULSE 90; O2SAT 96
--- NOTE | 2017-07-26 08:38 | XRAY ---
Indication: Left-sided weakness and dizziness. Multiple contiguous axial images obtained through the head without contrast. Comparison: November 16, 2014. Again normal appearing brain parenchyma, ventricles, and bony calvarium. Visualized paranasal sinuses and mastoid air cells are clear. Impression: Stable normal CT head without contrast exam. CT DI 69.66
--- NOTE | 2017-07-26 08:54 | XRAY ---
Indication: Dizziness. Left arm/leg numbness. Comparison: March 22, 2017. Portable chest again demonstrates normal heart and lungs. Bony thorax intact again with mild double curvature scoliosis. No new/acute findings.
== END 2017-07-25 19:36 | disposition home or self-care (01) ==
LOC: ED 16:14
DX: G43.109 Migraine with aura, not intractable, without status migrainosus (principal); Z86.14 Personal history of Methicillin resistant Staphylococcus aureus infection; Z72.0 Tobacco use; R20.2 Paresthesia of skin
CPT/HCPCS: 36000; 36415; 70450; 71045; 80053; 84703; 85025; 85610; 85652; 85730; 93005; 93041; 96372; 96374; 96375; 99284; 99285; J1885; J3410

== ENCOUNTER 2019-05-12 12:02 | Emergency (ER) | payer OTHER ==
--- NOTE | 2019-05-12 12:15 | ERPHSYRPT ---
- History of Present Illness Time Seen by Provider: 05/12/19 12:14 Source: patient Exam Limitations: no limitations Physician History: The patient is a 28-year-old female with a past history significant for kidney stones, opiate addiction for which she is currently on methadone, and anxiety who presents with a chief complaint hematuria. She reports feeling suprapubic abdominal pain that started this morning. Just prior to arrival to the emergency department, she reportedly was urinating and when she wiped she noticed there is a small amount of blood on the tissue paper. She thought that the blood was coming from her urine however she also endorses she started experiencing vaginal bleeding this morning. She thought that she could be and took 2 home tests one of which was reportedly positive and the other one was reportedly negative and she is not sure she is currently. She's had 2 pregnancies in the past both of which resolved there by first. Denies fever, chills, constipation, rectal bleeding, nausea, vomiting and vaginal discharge. The patient took a methadone this morning. Timing/Duration: today Associated Symptoms: abdominal pain, No nausea, No vomiting, No shortness of breath, No chest pain, No malaise, No syncope Allergies/Adverse Reactions: codeine Allergy (Intermediate, Verified 05/12/19 12:11) Rash miconazole nitrate [From Monistat 3] Allergy (Intermediate, Verified 05/12/19 12 :11) Swelling buprenorphine [From Butrans] Allergy (Verified 05/12/19 12:11) citalopram [From Celexa] Allergy (Verified 05/12/19 12:32) sertraline [From Zoloft] Allergy (Verified 05/12/19 12:33) Home Medications: Buspirone HCl [Buspar] 15 mg PO BID 05/12/19 [History] Clonidine HCl 0.1 mg PO Q8H PRN PRN 05/12/19 [History] Methadone HCl [Dolophine HCl] 35 mg PO DAILY 05/12/19 [History] Hx Tetanus, Diphtheria Vaccination/Date Given: No Hx Influenza Vaccination/Date Given: Yes Hx Pneumococcal Vaccination/Date Given: No - Review of Systems Constitutional: No Fever, No Chills Eyes: No Symptoms Ears, Nose, & Throat: No Symptoms Respiratory: No Symptoms, No Cough, No Cyanosis, No Dyspnea, No Dyspnea on Exertion (MCCRARY) Cardiac: No Symptoms Abdominal/Gastrointestinal: Abdominal Pain, No Nausea, No Vomiting Genitourinary Symptoms: Hematuria, Vaginal Bleeding, No Frequency, No Vaginal Discharge, No Vaginal Itching Musculoskeletal: No Symptoms, No Back Pain Skin: No Symptoms Neurological: No Symptoms Psychological: No Symptoms Endocrine: No Symptoms Hematologic/Lymphatic: No Symptoms Immunological/Allergic: No Symptoms All Other Systems: Reviewed and Negative - Past Medical History Pertinent Past Medical History: Yes Neurological History: No Pertinent History ENT History: No Pertinent History Cardiac History: No Pertinent History Respiratory History: No Pertinent History Endocrine Medical History: No Pertinent History Musculoskeletal History: No Pertinent History GI Medical History: Pancreatitis, Other History: No Pertinent History Psycho-Social History: No Pertinent History Female Reproductive Disorders: No Pertinent History Other Medical History: lupus, constipation - Past Surgical History Past Surgical History: Yes Neuro Surgical History: No Pertinent History Cardiac: No Pertinent History Respiratory: No Pertinent History Gastrointestinal: Cholecystectomy Genitourinary: No Pertinent History Musculoskeletal: No Pertinent History Female Surgical History: Other Other Surgical History: LEEP Procedure;. CERVICAL ABLATION - Social History Smoking Status: Current every day smoker How long have you smoked: 11 Exposure to second hand smoke: Yes Alcohol Use: Socially Drug Use: none Patient Lives Alone: No Significant Family History: no pertinent family hx - Nursing Vital Signs Nursing Vital Signs: Initial Vital Signs Temperature 97.8 F 05/12/19 12:13 Pulse Rate 80 05/12/19 12:13 Respiratory Rate 16 05/12/19 12:13 Blood Pressure 120/75 05/12/19 12:13 O2 Sat by Pulse Oximetry 98 05/12/19 12:13 Pain Scale Pain Intensity 4 - Physical Exam General Appearance: no apparent distress, alert Eye Exam: PERRL/EOMI Ears, Nose, Throat Exam: moist mucous membranes Neck Exam: normal inspection, supple Respiratory Exam: normal breath sounds, lungs clear, airway intact, No chest tenderness, No respiratory distress Cardiovascular Exam: regular rate/rhythm, normal heart sounds, capillary refill <2 sec Gastrointestinal/Abdomen Exam: soft, normal bowel sounds, tenderness (Mild suprapubic tenderness), No distention, No rebound Back Exam: normal inspection Extremity Exam: normal inspection Neurologic Exam: alert, oriented x 3, cooperative, normal mood/affect Skin Exam: normal color, warm, dry, No rash, No petechiae, No jaundice, No cyanosis SpO2 Interpretation: normal O2 Delivery: Room Air - Course Nursing assessment & vital signs reviewed: Yes - CT Exams Abdomen/Pelvis CT Interpretation: Negative, Tele-radiologist Report (No acute findings. No evidence of calculi in the kidneys or urinary tract infection) Ordered Tests: Medication Summary Discontinued Medications Generic Name Dose Route Start Last Admin Trade Name Vamsiq PRN Reason Stop Dose Admin Ketorolac Tromethamine 15 mg 05/12/19 12:27 05/12/19 12:50 Toradol 30 Mg Injection IV 05/12/19 12:28 15 mg STAT ONE Administration Ketorolac Tromethamine Confirm 05/12/19 12:48 Toradol 30 Mg Injection Administered 05/12/19 12:49 Dose 30 mg .ROUTE .[facility] Lab/Rad Data: Laboratory Result Diagrams 05/12/19 12:26 Laboratory Results 05/12/19 05/12/19 05/12/19 Range/Units 12:48 12:39 12:26 Sodium 140 (137-145) mmol/L Potassium 4.7 (3.5-5.1) mmol/L Chloride 110 H (98-107) mmol/L Carbon Dioxide 28 (22-30) mmol/L Anion Gap 7.4 (5-15) MEQ/L BUN 13 (7-17) mg/dL Creatinine 0.87 (0.52-1.04) mg/dL Estimated GFR > 60.0 ML/MIN Glucose 82 (74-106) mg/dL Calcium 9.5 (8.4-10.2) mg/dL Urine Color YELLOW (YELLOW) Urine Appearance HAZY (CLEAR) Urine pH 7.0 (5-6) Ur Specific [place] 1.010 (1.005-1.025) Urine Protein NEGATIVE (Negative) Urine Ketones NEGATIVE (NEGATIVE) Urine Blood 250 (0-5) Murray/ul Urine Nitrite NEGATIVE (NEGATIVE) Urine Bilirubin NEGATIVE (NEGATIVE) Urine Urobilinogen NORMAL (0-1) mg/dL Ur Leukocyte Esterase TRACE (NEGATIVE) Urine WBC (Auto) 0-2 (0-5) /HPF Urine RBC (Auto) 0-2 (0-2) /HPF U Epithel Cells (Auto) MODERATE (FEW) /HPF Urine Bacteria (Auto) MODERATE (NEGATIVE) /HPF Urine Mucus (Auto) MODERATE (NEGATIVE) /HPF Urine Culture Reflexed YES (NO) Urine Glucose NEGATIVE (NEGATIVE) mg/dL Urine HCG, Qual NEGATIVE (Negative) - Progress Progress: unchanged Progress Note: 05/12/19 13:51 I spoke to the patient about her lab results and tried to narrow the differential. she is convinced she is suffering from an obstructing kidney stone despite me informing her that stones usually present with microscopic hematuria not gross hematuria that she described and the blood she saw is likely vaginal in etiology. A CT abdomen/pelvis has been ordered for further evaluation. I suspect the blood is vaginal in order and the patient is likely experiencing breakthrough bleeding or an abnormal menstrual cycle. 05/12/19 13:53 05/12/19 14:27 the patient's abdominal and pelvis CT was reviewed by me and I do not see any acute intra-abdominal pathology at this time, specifically findings to suggest an obstructing kidney stone such as hydronephrosis or hydroureter. Awaiting formal radiology review at this time. Counseled pt/family regarding: lab results, diagnosis, need for follow-up, rad results - Departure Departure Disposition: Home Clinical Impression: Hematuria, Abdominal pain, Vaginal bleeding Condition: Stable Critical Care Time: No Referrals: VINCENZO DENT MD [Primary Care Provider] - Instructions: Blood in the Urine (Hematuria) in Adults, Acute Abdomen (Belly Pain), Adult (DC), Heavy Periods (DC) Plan of Treatment: Nontoxic in appearance. Labs and CT reviewed. I suspect the patient's bleeding is likely vaginal in origin and may be due to an irregular menstrual cycle. She was offered a pelvic exam for further evaluation but declined. UA with microscopic blood may actually be contaminate, but unsure for now given I was unable to perform a pelvic exam. The patient appeared comfortable and in no obvious pain. She was ultimately discharged home to f/u with PCP.
[2019-05-12] MEDS ORDERED: TORAdol 30 mg Injection IV ONE (12:27)
[2019-05-12] MEDS ORDERED: TORAdol 30 mg Injection ONE (12:48)
[2019-05-12 13:28] LABS: ANION GAP 7.4 MEQ/L (5-15); BLOOD UREA NITROGEN 13 mg/dL (7-17); CHLORIDE 110 mmol/L (98-107); Calcium 9.5 mg/dL (8.4-10.2); Carbon Dioxide 28 mmol/L (22-30); Creatinine 1 0.87 mg/dL (0.52-1.04); Glucose 82 mg/dL (74-106); Potassium 4.7 mmol/L (3.5-5.1); SODIUM 140 mmol/L (137-145)
[2019-05-12 13:34] LABS: Appearance HAZY (CLEAR); Bacteria MODERATE /HPF (NEGATIVE); Bilirubin NEGATIVE (NEGATIVE); Blood 250 Ery/ul (0-5); Epithelial Cells MODERATE /HPF (FEW); Glucose NEGATIVE (NEGATIVE); Ketones NEGATIVE (NEGATIVE); Leukocyte Esterase TRACE (NEGATIVE); Mucus MODERATE /HPF (NEGATIVE); Nitrite NEGATIVE (NEGATIVE); Protein,Urine Dip NEGATIVE (Negative); RBC 0-2 /HPF (0-2); Urobilinogen NORMAL mg/dL (0-1); WBC 0-2 /HPF (0-5)
[2019-05-12 14:28] VITALS: O2SAT 99
[2019-05-12 15:34] VITALS: BP 108/71; PULSE 64
--- NOTE | 2019-05-12 20:01 | XRAY ---
Indication: Left flank pain and hematuria. History kidney stone. Multiple contiguous axial images obtained through the abdomen and pelvis without contrast using renal stone protocol. Comparison: January 06, 2017. Lung bases demonstrates minimal left base dependent atelectasis. No infiltrate or effusion. Heart is not enlarged. No renal calculus or evidence for obstructive uropathy in either system. Noncontrasted stomach and bowel loops appear nonobstructed. Normal appendix. There is now marked diffuse scattered colonic fecal debris throughout including rectum. Again previous cholecystectomy. No free fluid/air. Remaining liver, pancreas, spleen, adrenal glands, kidneys, ureters, bladder, uterus, ovaries, and aorta appear unremarkable appear unremarkable for noncontrast exam. Osseous structures intact again with incidental bilateral L5 spondylolysis without spondylolisthesis. Impression: 1. Negative renal calculus or evidence for obstructive uropathy. 2. New diffuse fecal stasis. 3. Stable L5 spondylolysis without spondylolisthesis. Comment: Preliminary interpretation was made by [facility] who does not report incidental fecal stasis.
== END 2019-05-12 15:54 | disposition home or self-care (01) ==
LOC: ED 12:02
DX: R31.9 Hematuria, unspecified (principal); R10.9 Unspecified abdominal pain; N93.9 Abnormal uterine and vaginal bleeding, unspecified; Z79.891 Long term (current) use of opiate analgesic; Z79.899 Other long term (current) drug therapy
CPT/HCPCS: 36000; 36415; 74176; 80048; 81001; 84703; 87086; 96374; 99284; J1885

== ENCOUNTER 2020-02-06 21:11 | Observation (INO) | payer OTHER ==
[2020-02-06] MEDS ORDERED: Lactated Ringers 1,000 ML IV ONE ×3 (21:50→23:22)
[2020-02-06 22:05] VITALS: O2SAT 98
[2020-02-06 22:52] LABS: Absolute Neutrophil Ct (ANC) 10.71 (1.4-6.9); BASOPHIL % 0.1 % (0.0-0.4); Basophil (Absolute #) 0.02 (0-0.4); Eosinophil % 2.3 % (0.00-5.0); Eosinophil (Absolute #) 0.34 (0-0.5); Hematocrit 30.7 % (35-47); Hemoglobin 10.1 gm/dl (12.0-16.0); Lymphocyte (Absolute #) 3.36 (1.0-4.6); Lymphocytes % 22.3 % (24.0-44.0); Mean Cell Volume 92.7 fl (78-100); Mean Corpuscular Hemoglobin 30.5 pg (26-32); Mean Corpuscular Hgb Concent. 32.9 g/dl (32-36); Mean Platelet Volume 10.6 fl (7.5-11.0); Monocyte (Absolute #) 0.66 (0.0-1.3); Monocytes % 4.4 % (0.0-12.0); Neutrophil % 70.9 % (36.0-66.0); Platelet Count 261 K/mm3 (150-450); Red Blood Count 3.31 M/mm3 (4.1-5.4); Red Cell Distribution Width 13.1 % (11.5-14.0); White Blood Count 15.1 K/mm3 (4.0-10.5)
[2020-02-06 22:56] LABS: Appearance CLEAR (CLEAR); Bilirubin NEGATIVE (NEGATIVE); Blood NEGATIVE Ery/ul (0-5); Epithelial Cells RARE /HPF (FEW); Glucose NEGATIVE (NEGATIVE); Ketones NEGATIVE (NEGATIVE); Leukocyte Esterase NEGATIVE (NEGATIVE); Mucus SLIGHT /HPF (NEGATIVE); Nitrite NEGATIVE (NEGATIVE); Protein,Urine Dip NEGATIVE (Negative); Specific Gravity 1.025 (1.005-1.025); Urobilinogen NEGATIVE mg/dL (0-1)
[2020-02-06 23:16] LABS: ALBUMIN 3.6 g/dL (3.5-5.0); ALKALINE PHOSPHATASE 83 U/L (38-126); ANION GAP 9.2 MEQ/L (5-15); BLOOD UREA NITROGEN 14 mg/dL (7-17); CHLORIDE 104 mmol/L (98-107); Calcium 8.7 mg/dL (8.4-10.2); Carbon Dioxide 24 mmol/L (22-30); Creatinine 1 0.45 mg/dL (0.52-1.04); EST GLOMERULAR FILTRATION RATE > 60.0 ML/MIN; Glucose 92 mg/dL (74-106); Potassium 3.4 mmol/L (3.5-5.1); SGOT/AST 23 U/L (14-36); SGPT/ALT 13 U/L (0-35); SODIUM 133 mmol/L (137-145); Total Protein 6.4 g/dL (6.3-8.2)
[2020-02-06] MEDS ORDERED: Lactated Ringers 1,000 ML IV SCH (23:30)
[2020-02-07 00:04] VITALS: BP 120/71; PULSE 90
[2020-02-07 15:09] LABS: Amphetamine,Urine NEGATIVE (NEGATIVE); Barbiturate,Urine NEGATIVE (NEGATIVE); Benzodiazepine,Urine NEGATIVE (NEGATIVE); Cocaine,Urine NEGATIVE (NEGATIVE); Methadone,Urine POSITIVE (NEGATIVE); Opiate,Urine NEGATIVE (NEGATIVE); PCP,Urine NEGATIVE (NEGATIVE); THC,Urine NEGATIVE (NEGATIVE)
== END 2020-02-07 00:31 | disposition home or self-care (01) ==
LOC: OB 21:11
PROVIDERS: ADMIT Family Medicine; ATTEND Family Medicine
DX: O26.892 Other specified pregnancy related conditions, second trimester (principal); Z3A.21 21 weeks gestation of pregnancy; R10.9 Unspecified abdominal pain; K59.00 Constipation, unspecified; D72.829 Elevated white blood cell count, unspecified
CPT/HCPCS: 36415; 80053; 80307; 81001; 85025; G0378

== ENCOUNTER 2020-05-26 19:33 | Inpatient (IN) | payer OTHER ==
[2020-05-26] MEDS ORDERED: SOD CITRATE-CITRIC ACID SOLN PO ONE (19:43)
[2020-05-26] MEDS ORDERED: Reglan 10 MG/2 ML IV SCH (19:45)
[2020-05-26] MEDS ORDERED: Pepcid 20 MG VIAL IV SCH (19:45)
[2020-05-26] MEDS ORDERED: CEFAZOLIN 2 GM-D5W BAG** 2 GM/50 ML ML IV SCH (20:00)
[2020-05-26] MEDS ORDERED: Lactated Ringers 1,000 ML IV SCH (20:00)
[2020-05-26 20:12] LABS: Hemoglobin 12.4 gm/dl (12.0-16.0); Mean Cell Volume 93.4 fl (78-100); Mean Corpuscular Hemoglobin 30.5 pg (26-32); Mean Corpuscular Hgb Concent. 32.6 g/dl (32-36); Mean Platelet Volume 10.4 fl (7.5-11.0); Platelet Count 203 K/mm3 (150-450); Red Blood Count 4.07 M/mm3 (4.1-5.4); Red Cell Distribution Width 13.4 % (11.5-14.0); White Blood Count 9.9 K/mm3 (4.0-10.5)
[2020-05-26 20:19] LABS: INR 0.96 (0.8-3.0); PROTIME 10.9 SECONDS (9.95-12.35)
[2020-05-26 20:22] LABS: PTT 27.1 SECONDS (25.3-37.0)
[2020-05-26] MEDS ORDERED: DIPRIVAN 200 MG/20 ML IV ONE (20:22)
[2020-05-26] MEDS ORDERED: Pitocin 10 UNITS/ML ONE ×3 (20:22→20:50)
[2020-05-26] MEDS ORDERED: Quelicin Fliptop 200 MG/10 ML ONE (20:22)
[2020-05-26] MEDS ORDERED: SUBLIMAZE 250 MCG/5 ML ONE (20:22)
[2020-05-26] MEDS ORDERED: Versed 2 MG/2 ML Injection ONE (20:43)
[2020-05-26 20:45] LABS: Appearance CLEAR (CLEAR); Bilirubin NEGATIVE (NEGATIVE); Blood NEGATIVE Ery/ul (0-5); Glucose NEGATIVE (NEGATIVE); Ketones NEGATIVE (NEGATIVE); Leukocyte Esterase TRACE (NEGATIVE); Mucus SLIGHT /HPF (NEGATIVE); Nitrite NEGATIVE (NEGATIVE); Protein,Urine Dip 30 (Negative); Specific Gravity 1.014 (1.005-1.025); Urobilinogen NEGATIVE mg/dL (0-1)
[2020-05-26] MEDS ORDERED: Zemuron 100 MG/10 ML ONE (20:51)
[2020-05-26 20:52] LABS: ABO TYPING O; Antibody Screen NEGATIVE (NEGATIVE); RH TYPING POSITIVE
[2020-05-26] MEDS ORDERED: MARCAINE 0.5%-EPI 1:200,000 VL IJ ONE (20:52)
[2020-05-26 21:00] LABS: Amphetamine,Urine NEGATIVE (NEGATIVE); Barbiturate,Urine NEGATIVE (NEGATIVE); Benzodiazepine,Urine NEGATIVE (NEGATIVE); Cocaine,Urine NEGATIVE (NEGATIVE); Methadone,Urine POSITIVE (NEGATIVE); Opiate,Urine NEGATIVE (NEGATIVE); PCP,Urine NEGATIVE (NEGATIVE); THC,Urine NEGATIVE (NEGATIVE)
[2020-05-26] MEDS ORDERED: BRIDION 200MG/2ML IV ONE (21:06)
[2020-05-26] MEDS ORDERED: Phenergan 25 MG INJ IM PRN (21:40)
[2020-05-26] MEDS ORDERED: TORAdol 30 mg Injection ONE (21:42)
[2020-05-26] MEDS ORDERED: Hydromorphone 1 mg/ml Injection ONE ×2 (21:43→21:52)
[2020-05-26] MEDS ORDERED: SUBLIMAZE 100 MCG/2 ML ONE ×2 (21:51→22:15)
[2020-05-26] MEDS ORDERED: M-M-R II Vaccine With Diluent SQ ONE (21:54)
[2020-05-26] MEDS ORDERED: LANSINOH 40 GM TOP PRN (21:54)
[2020-05-26] MEDS ORDERED: Dulcolax 10 MG SUPP PR PRN (21:54)
[2020-05-26] MEDS ORDERED: CORTISONE 1% CREAM TP PRN (21:54)
[2020-05-26] MEDS ORDERED: Restoril 15 MG PO PRN (21:54)
[2020-05-26] MEDS ORDERED: Ambien 10 MG PO PRN (21:54)
[2020-05-26] MEDS ORDERED: Narcan 0.4 MG/ML IV PRN (22:00)
[2020-05-26] MEDS: Colace 100 MG PO SCH (22:00)
[2020-05-26] MEDS ORDERED: DILAUDID 1 MG/1ML PCA IV PRN (23:00)
[2020-05-26] MEDS: Dextrose 5%-Lr IV Solution 1000 ML 1,000 ML IV SCH (23:20)
[2020-05-27] MEDS: TORAdol 30 mg Injection IV PRN ×2 (03:32→19:33)
[2020-05-27 05:22] LABS: Hematocrit 36.4 % (35-47); Hemoglobin 11.8 gm/dl (12.0-16.0); Mean Cell Volume 86.1 fl (78-100); Mean Corpuscular Hemoglobin 27.9 pg (26-32); Mean Corpuscular Hgb Concent. 32.4 g/dl (32-36); Mean Platelet Volume 10.6 fl (7.5-11.0); Platelet Count 190 K/mm3 (150-450); Red Blood Count 4.23 M/mm3 (4.1-5.4); Red Cell Distribution Width 12.7 % (11.5-14.0); White Blood Count 10.9 K/mm3 (4.0-10.5)
[2020-05-27 05:46] LABS: Lymphocytes 10 % (24-44); Monocyte 2 % (0.0-12.0); Neutrophils 88 % (36.0-66.0); Total Cells Counted 100
[2020-05-27 05:48] LABS: Platelet Estimate NORMAL (NORMAL)
[2020-05-27] MEDS ORDERED: Adacel Vial IM ONE (08:00)
--- NOTE | 2020-05-27 09:16 | OP ---
SURGERY DATE/TIME: 05/26/20202027 PREOPERATIVE DIAGNOSES: 1) Breech presentation. 2) Term intrauterine in active labor. 3) Spontaneous rupture of membranes. 4) Methadone treatment. POSTOPERATIVE DIAGNOSES: 1) Breech presentation. 2) Term intrauterine in active labor. 3) Spontaneous rupture of membranes. 4) Methadone treatment. PROCEDURE: Emergency primary low transverse section. SURGEON: Foster Bethea M.D. ANESTHESIA: General by Eulogio Quach CRNA. ESTIMATED BLOOD LOSS: 400 ml. URINE OUTPUT: 100 cc clear straw-colored urine. DESCRIPTION OF PROCEDURE: The patient is a 29 year-old 3, para 2 at approximately 37 and 2/7 weeks estimated gestational age. She reportedly received her care through Dr. Hernandez in [place], was known to have a breech presentation and was scheduled at a later date scheduled primary section. Of note, she had been on methadone through her . Denies illicit drugs or alcohol use otherwise. She presented with spontaneous rupture of membranes and was found to be in complete dilatation with breech presentation by Dr. Amador on her arrival. Therefore I was called for emergency section. Risks, benefits and alternatives including risk of bleeding, risk of damage to surrounding structures and risk of infection were discussed with the patient and she consented. She was taken to the OR where she underwent general anesthesia due to urgent nature of her presentation. A low transverse skin incision was made by knife and carried down through the subcutaneous fat and the fascia was nicked on both sides of the midline and extended horizontal using curved Read scissors. The superior free edge of the fascia was grasped with Anthony clamps and the underlying rectus muscles were dissected free. The same was repeated inferiorly. The peritoneal cavity was entered and extended horizontal. A bladder flap was quickly created and reflected over the lower uterine segment. Horizontal uterine incision was made by knife and carried down to the level of the amniotic membranes which were carefully artificially ruptured. A viable female with nuchal cord that was loose was delivered from the breech presentation. She had a strong cry immediately after the oropharynx and nares were bulb suctioned free. The cord was clamped and cut and she was handed off to the awaiting nursery team. Placenta was manually extracted. The uterus was exteriorized. The uterine cavity was sponge curetted clean with moist lap sponge and the uterine incision was closed with #1 chromic in a running locked fashion. Good closure and good hemostasis were achieved. Posterior cul-de-sac was wiped free of blood and clot and then the uterus was returned to the peritoneal cavity. The lateral gutters were wiped free of blood and clot. The uterine incision was inspected and noted to have good closure and good hemostasis. Next, the fascia was closed with running 0 Vicryl with good closure and good hemostasis were achieved. The subcutaneous fat was irrigated with warm, sterile saline and any areas of bleeding were cauterized with electrocautery. The skin layer was then closed with 4-0 undyed Vicryl in a running subcuticular fashion. The knot was inadvertently cut at the end of the incision therefore miriam were placed intermittently throughout the incision line to approximate the wound edges. Good result was achieved with hemostasis. The patient was transferred to the recovery room in good condition.
[2020-05-27] MEDS: Dextrose 5%-Lr IV Solution 1000 ML 1,000 ML IV SCH (09:33)
[2020-05-27] MEDS: FERREX 150 PO SCH (09:34)
[2020-05-27] MEDS: Colace 100 MG PO SCH ×2 (09:34→23:24)
[2020-05-27] MEDS ORDERED: BENADRYL 25 MG CAPSULE PO PRN ×2 (10:40→11:15)
[2020-05-27] MEDS ORDERED: DOLOPHINE 10MG Tablet PO SCH ×2 (11:00→11:30)
[2020-05-27] MEDS: Mylicon 80MG PO PRN ×2 (11:49→23:24)
[2020-05-27] MEDS: MOTRIN 400 MG PO PRN ×2 (12:04→23:24)
[2020-05-27] MEDS: DOLOPHINE 10MG Tablet PO SCH (14:53)
[2020-05-27] MEDS: THERAGRAN MULTIVITAMIN PO SCH (14:53)
[2020-05-27] MEDS: TYLENOL EXTRA STRENGTH 500 MG PO PRN ×2 (19:33→23:23)
[2020-05-28 02:20] VITALS: O2SAT 99
[2020-05-28] MEDS: TYLENOL EXTRA STRENGTH 500 MG PO PRN ×2 (06:00→15:23)
[2020-05-28] MEDS: MOTRIN 400 MG PO PRN ×2 (06:01→15:23)
[2020-05-28 08:06] VITALS: BP 141/81; PULSE 80
--- NOTE | 2020-05-28 08:36 | PCM.DS ---
Discharge Summary Date of Admission: 05/26/20 19:33 Admitting Physician: PRISCILLA TANNER Consults: Consults on Case 05/26/20 19:45 Notify Physician OF ADMISSION Primary Care Provider: ANGIE HERNANDEZ MD Allergies Allergies codeine Allergy (Intermediate, Verified 05/12/19 12:11) Rash miconazole nitrate [From Monistat 3] Allergy (Intermediate, Verified 05/12/19 12:11) Swelling buprenorphine [From Butrans] Allergy (Verified 05/12/19 12:11) citalopram [From Celexa] Allergy (Verified 05/12/19 12:32) sertraline [From Zoloft] Allergy (Verified 05/12/19 12:33) Hospital Summary - Hospital Course Hospital Course: 29yo at 37 2/7 wks LEONEL arrived with SROM and complete dilation, breech presentation. care per Dr Hernandez and on methadone per recovery clinic in [place]. she was taken for stat emergency , has done well postoperatively. receiving her routine methadone dosage with some ibuprofen and tylenol as needed. her pain is controlled, lochia is mild and she is tolerating po intake. no complications post-operatively - Vitals & Intake/Output Vital Signs: Vital Signs Temperature 97.6 F 05/28/20 08:00 Pulse Rate 80 05/28/20 08:00 Respiratory Rate 18 05/28/20 08:00 Blood Pressure 141/81 05/28/20 08:00 O2 Sat by Pulse Oximetry 99 05/28/20 02:00 Intake & Output: Intake & Output 05/25/20 05/26/20 05/27/20 05/28/20 11:59 11:59 11:59 11:59 Intake Total 1944 2700 Output Total 700 1500 Balance 1244 1200 Weight 68.039 kg - Lab Result Diagrams: 05/27/20 04:28 Micro Results-Entire Visit: Microbiology 05/26/20 20:20 Urine Culture - Preliminary Catherized NO GROWTH TO DATE Discharge Exam General Appearance: no apparent distress, alert Eye Exam: PERRL, EOMI, eyes nml inspection Cardiovascular Exam: regular rate/rhythm, normal heart sounds Gastrointestinal/Abdomen Exam: soft, other (incision clean, dry, intact and well approximated), No tenderness, No mass Extremity Exam: normal inspection, normal range of motion Final Diagnosis/Problem List - Final Discharge Diagnosis/Problem (1) delivery delivered Current Visit: Yes Status: Acute Code(s): O82 - ENCOUNTER FOR DELIVERY WITHOUT INDICATION (2) Narcotic dependence, in remission Current Visit: Yes Status: Acute Code(s): F11.21 - OPIOID DEPENDENCE, IN REMISSION - Discharge Disposition: Home, Self-Care Condition: Stable Prescriptions: New Docusate Sodium 100 mg [Colace 100 MG] 100 mg PO BID #60 capsule Continue Methadone HCl [Dolophine HCl] 80 mg PO DAILY Promethazine HCl 25 mg [Phenergan 25 mg] 25 mg Q6H PRN PRN PRN Reason: Nausea Vits W-Ca,Fe,FA(<1Mg) [] 1 tab PO DAILY Ondansetron HCl [Zofran] 4 mg PO TID PRN PRN Reason: Nausea Diphenhydramine HCl 25 mg [Benadryl 25 mg Capsule] 50 mg PO BID PRN PRN Reason: RASH Additional Instructions: take your usual home methadone dose, you may take ibuprofen or tylenol as needed for pain. call for severe pain, heavy bleeding, fever or new problems or concerns. see Dr Bethea in 1 week for staple removal Follow up with: ALBA BETHEA MD [ACTIVE STAFF] - 1 Week (for staple removal and wound check)
[2020-05-28] MEDS: DOLOPHINE 10MG Tablet PO SCH (10:00)
[2020-05-28] MEDS: THERAGRAN MULTIVITAMIN PO SCH (11:30)
[2020-05-28] MEDS: FERREX 150 PO SCH (11:30)
[2020-05-28] MEDS: Colace 100 MG PO SCH (15:22)
== END 2020-05-28 16:25 | disposition home or self-care (01) | DRG 788 ==
LOC: OB 19:33
PROVIDERS: ADMIT Family Medicine; ATTEND Family Medicine
PROC: 10D00Z1 Extraction of Products of Conception, Low, Open Approach (ICD-10-PCS; principal; 2020-05-26)
DX: O32.1XX0 Maternal care for breech presentation, not applicable or unspecified (principal); Z3A.37 37 weeks gestation of pregnancy; Z37.0 Single live birth; O42.02 Full-term premature rupture of membranes, onset of labor within 24 hours of rupture; F11.11 Opioid abuse, in remission
CPT/HCPCS: 36415; 64488; 76937; 76942; 80307; 81001; 84112; 85025; 85027; 85610; 85730; 86592; 86762; 86850; 86900; 86901; 87086; 99140; G0378; J0330; J0690; J1170; J1885; J2250; J2590; J2704; J3010; L0625; A9270-GY

== ENCOUNTER 2020-06-28 17:02 | Emergency (ER) | payer OTHER ==
[2020-06-28] MEDS ORDERED: CLINDAMYCIN-D5W 900 MG/50 ML*** 900 MG/50 ML BAG IV ONE (17:23)
[2020-06-28] MEDS ORDERED: solu-MEDROL 125 MG ONE (17:23)
[2020-06-28] MEDS: solu-MEDROL 125 MG IV ONE (17:25)
[2020-06-28] MEDS: CLINDAMYCIN-D5W 900 MG/50 ML*** 900 MG/50 ML BAG IV STA (17:25)
[2020-06-28] MEDS ORDERED: Zofran 4 MG/2 ML VIAL ONE (17:32)
[2020-06-28] MEDS: Zofran 4 MG/2 ML VIAL IV ONE (17:33)
[2020-06-28 17:56] LABS: Absolute Neutrophil Ct (ANC) 5.61 (1.4-6.9); BASOPHIL % 0.3 % (0.0-0.4); Basophil (Absolute #) 0.03 (0-0.4); Eosinophil % 4.6 % (0.00-5.0); Eosinophil (Absolute #) 0.44 (0-0.5); Hematocrit 43.1 % (35-47); Hemoglobin 13.4 gm/dl (12.0-16.0); Lymphocyte (Absolute #) 2.93 (1.0-4.6); Lymphocytes % 30.9 % (24.0-44.0); Mean Cell Volume 94.3 fl (78-100); Mean Corpuscular Hemoglobin 29.3 pg (26-32); Mean Corpuscular Hgb Concent. 31.1 g/dl (32-36); Mean Platelet Volume 9.8 fl (7.5-11.0); Monocyte (Absolute #) 0.46 (0.0-1.3); Monocytes % 4.9 % (0.0-12.0); Neutrophil % 59.3 % (36.0-66.0); Platelet Count 427 K/mm3 (150-450); Red Blood Count 4.57 M/mm3 (4.1-5.4); Red Cell Distribution Width 12.5 % (11.5-14.0); White Blood Count 9.5 K/mm3 (4.0-10.5)
--- NOTE | 2020-06-28 18:00 | ERPHSYRPT ---
<MARC CAMPBELL - Last Filed: 06/28/20 19:11> - History of Present Illness Source: patient Exam Limitations: no limitations Patient Subjective Stated Complaint: pt here for a rash to body, she states she has rash for 2 months. she states the dr thought in was due to pregnany but delivered on 05/26, she states last 2 days rash is worse Triage Nursing Assessment: pt alert, walked in, resp easy, skin with red bumps to face,arms and legs, with swelling to left side of face and right hand Timing/Duration: week(s), gradual onset, worse Quality: burning, itchy Severity: moderate Location: face, torso, hands, extremities Possible Causes: no cause identified Modifying Factors: Worsens With: antihistamine Associated Symptoms: change in skin texture, rash, No difficulty breathing, No fever, No swelling/mass/lumps Hx Tetanus, Diphtheria Vaccination/Date Given: No Hx Influenza Vaccination/Date Given: Yes Hx Pneumococcal Vaccination/Date Given: No Immunizations Up to Date: Yes <ANA BILL - Last Filed: 07/03/20 19:46> - History of Present Illness Time Seen by Provider: 06/28/20 17:16 Physician History: 29 years old female with history of anxiety depression with 1 month ago presented in the ER with chief complaint of skin rash on the arms/face and few on the legs and abdomen. Patient reports she is developed this rash while she was and even after delivery her rash are not going away and worsening. Reports burning and itching. She woke up this morning with swelling around left eye and difficulty opening of lids but dull aching pain. Denies any pain inside the eyeball or difficulty vision but cannot open it because of lid swellings. Patient reports she was having itching and started taking Benadryl 2 months ago and that could be the probable reason for her worsening rash as it seems like she is allergic to that. Denies any fever or chills. (ANA BILL) Allergies/Adverse Reactions: codeine Allergy (Intermediate, Verified 06/28/20 17:15) Rash miconazole nitrate [From Monistat 3] Allergy (Intermediate, Verified 06/28/20 17:15) Swelling buprenorphine [From Butrans] Allergy (Verified 06/28/20 17:15) citalopram [From Celexa] Allergy (Verified 06/28/20 17:15) sertraline [From Zoloft] Allergy (Verified 06/28/20 17:15) Home Medications: Methadone HCl [Dolophine HCl] 80 mg PO DAILY 05/12/19 [History] Diphenhydramine HCl 25 mg [Benadryl 25 mg Capsule] 50 mg PO BID PRN 05/27/20 [History] Travel Risk - International Travel Have you traveled outside of the country in past 3 weeks: No - Coronavirus Screening Are you exhibiting any of the following symptoms?: No <ANA BILL - Last Filed: 07/03/20 19:46> - Review of Systems Constitutional: No Symptoms Eyes: Eye Redness, Itchy Ears, Nose, & Throat: Other (Facial swellings) Respiratory: No Symptoms ( and rash) Cardiac: No Symptoms Abdominal/Gastrointestinal: No Symptoms Genitourinary Symptoms: No Symptoms Musculoskeletal: No Symptoms Skin: Cellulitis, Pruritis, Rash, Skin Lesions Neurological: No Symptoms Psychological: Anxiety, Depression Endocrine: No Symptoms Hematologic/Lymphatic: No Symptoms Immunological/Allergic: No Symptoms <ANA BILL - Last Filed: 07/03/20 19:46> - Past Medical History Pertinent Past Medical History: Yes Neurological History: No Pertinent History ENT History: No Pertinent History Cardiac History: No Pertinent History Respiratory History: No Pertinent History Endocrine Medical History: No Pertinent History Musculoskeletal History: No Pertinent History GI Medical History: Pancreatitis, Other History: No Pertinent History Psycho-Social History: No Pertinent History Female Reproductive Disorders: No Pertinent History Other Medical History: lupus, constipation - Past Surgical History Past Surgical History: Yes Neuro Surgical History: No Pertinent History Cardiac: No Pertinent History Respiratory: No Pertinent History Gastrointestinal: Cholecystectomy Genitourinary: No Pertinent History Musculoskeletal: No Pertinent History Female Surgical History: Other Other Surgical History: LEEP Procedure;. CERVICAL ABLATION - Social History Smoking Status: Current every day smoker How long have you smoked: 15 yrs Exposure to second hand smoke: Yes Alcohol Use: Socially Drug Use: none Patient Lives Alone: No Significant Family History: no pertinent family hx - Female History Hx Last Menstrual Period: unsure Hx Now: (unkn) <ANA BILL - Last Filed: 07/03/20 19:46> - Physical Exam General Appearance: no apparent distress, alert Eye Exam: other (Left eye diffuse swelling of upper and lower lid/maxilla with erythema, mild tenderness to touch. Mild increased temperature. No conjunctival injection in the left eye and pupil normal in size and reacting to light and accommodation is intact range of motion) Ears, Nose, Throat Exam: normal ENT inspection, pharynx normal Neck Exam: normal inspection, non-tender, supple, full range of motion Respiratory Exam: normal breath sounds, lungs clear Cardiovascular Exam: regular rate/rhythm, normal heart sounds Gastrointestinal/Abdomen Exam: soft, normal bowel sounds, No tenderness Back Exam: normal inspection, normal range of motion Extremity Exam: normal range of motion, pelvis stable Neurologic Exam: alert, oriented x 3, cooperative, director of medicare II-XII nml as tested, nml cerebellar function, nml station & gait, sensation nml, No motor deficits Skin Exam: rash, other (Diffuse erythematous macular papular and raised skin rash with some areas of skin break in the arms and hands with swelling of her right hand dorsum with intact range of motion in the fingers. Mild increased temperature, blanchable. No tenderness.) SpO2 Interpretation: normal SpO2: 98 O2 Delivery: Room Air <ANA BILL - Last Filed: 07/03/20 19:46> - Nursing Vital Signs Nursing Vital Signs: Initial Vital Signs Temperature 99.1 F 06/28/20 17:02 Pulse Rate 88 06/28/20 17:02 Respiratory Rate 16 06/28/20 17:02 Blood Pressure 148/110 06/28/20 17:02 O2 Sat by Pulse Oximetry 98 06/28/20 17:02 Pain Scale Pain Intensity 2 - CT Exams Other CT Interpretation: Other (CT orbits showing left pre-maxillary and periorbital soft tissue swelling without radiopaque foreign body or evidence of abscess. ) <MARC CAMPBELL - Last Filed: 06/28/20 19:11> Ordered Tests: Medication Summary Discontinued Medications Generic Name Dose Route Start Last Admin Trade Name Freq PRN Reason Stop Dose Admin Amoxicillin/Clavulanate Potassium 875 mg 06/28/20 18:50 06/28/20 18:53 Augmentin 875-125 Tablet PO 06/28/20 18:51 875 mg STAT ONE Administration Amoxicillin/Clavulanate Potassium Confirm 06/28/20 18:52 Augmentin 875-125 Tablet Administered 06/28/20 18:53 Dose 875 mg .ROUTE .STK-MED ONE Clindamycin HCl/Dextrose 900 mg in 50 mls @ 100 mls/hr 06/28/20 17:12 06/28/20 17:56 Clindamycin-D5w 900 Mg/50 Ml IV 06/28/20 17:41 Infused STAT STA Infusion Clindamycin HCl/Dextrose Confirm 06/28/20 17:23 Clindamycin-D5w 900 Mg/50 Ml Administered 06/28/20 17:24 Dose 900 mg in 50 mls @ ud IV .STK-MED ONE Methylprednisolone Sodium Succinate 125 mg 06/28/20 17:13 06/28/20 17:25 Solu-Medrol 125 Mg IV 06/28/20 17:14 125 mg STAT ONE Administration Methylprednisolone Sodium Succinate Confirm 06/28/20 17:23 Solu-Medrol 125 Mg Administered 06/28/20 17:24 Dose 125 mg .ROUTE .STK-MED ONE Ondansetron HCl 4 mg 06/28/20 17:31 06/28/20 17:33 Zofran 4 Mg/2 Ml Vial IV 06/28/20 17:32 4 mg STAT ONE Administration Ondansetron HCl Confirm 06/28/20 17:32 Zofran 4 Mg/2 Ml Vial Administered 06/28/20 17:33 Dose 4 mg .ROUTE .STK-MED ONE Lab/Rad Data: Laboratory Result Diagrams 06/28/20 17:40 06/28/20 17:40 Laboratory Results 06/28/20 06/28/20 Range/Units 17:40 17:40 WBC 9.5 (4.0-10.5) K/mm3 RBC 4.57 (4.1-5.4) M/mm3 Hgb 13.4 (12.0-16.0) gm/dl Hct 43.1 (35-47) % MCV 94.3 (78-100) fl MCH 29.3 (26-32) pg MCHC 31.1 L (32-36) g/dl RDW 12.5 (11.5-14.0) % Plt Count 427 (150-450) K/mm3 MPV 9.8 (7.5-11.0) fl Gran % 59.3 (36.0-66.0) % Eos # (Auto) 0.44 (0-0.5) Absolute Lymphs (auto) 2.93 (1.0-4.6) Absolute Monos (auto) 0.46 (0.0-1.3) Lymphocytes % 30.9 (24.0-44.0) % Monocytes % 4.9 (0.0-12.0) % Eosinophils % 4.6 (0.00-5.0) % Basophils % 0.3 (0.0-0.4) % Absolute Granulocytes 5.61 (1.4-6.9) Basophils # 0.03 (0-0.4) Sodium 137 (137-145) mmol/L Potassium 4.2 (3.5-5.1) mmol/L Chloride 100 (98-107) mmol/L Carbon Dioxide 30 (22-30) mmol/L Anion Gap 10.7 (5-15) MEQ/L BUN 8 (7-17) mg/dL Creatinine 0.71 (0.52-1.04) mg/dL Estimated GFR > 60.0 ML/MIN Glucose 102 (74-106) mg/dL Calcium 9.2 (8.4-10.2) mg/dL Total Bilirubin 0.10 L (0.2-1.3) mg/dL AST 23 (14-36) U/L ALT 21 (0-35) U/L Alkaline Phosphatase 172 H (38-126) U/L Serum Total Protein 7.2 (6.3-8.2) g/dL Albumin 3.9 (3.5-5.0) g/dL - Progress Progress: improved, pain not gone completely, re-examined Counseled pt/family regarding: lab results, diagnosis, need for follow-up, rad results <ANA BILL - Last Filed: 07/03/20 19:46> - Progress Progress Note: 06/28/20 18:44 29 years old is evaluated for dermatitis on the arms and trunk for quite some time and swelling left facial around eye. Ruled out orbital cellulitis but patient is being treated for preseptal/periorbital cellulitis with double antibiotic clindamycin and Augmentin. We will also give her steroids for dermatitis. Recommended outpatient follow-up with primary care, dermatology and ophthalmology. Discussed signs symptoms of worsening needing return to ER which she seemed understanding. (ANA BILL) <MARC CAMPBELL - Last Filed: 06/28/20 19:11> - Departure Departure Disposition: Home Critical Care Time: No <ANA BILL - Last Filed: 07/03/20 19:46> - Departure Clinical Impression: Periorbital cellulitis of left eye, Dermatitis Condition: Stable Referrals: ANGIE WYATT MD [Primary Care Provider] - Follow Up with PCP/3 days JOSSIE QUEZADA [NON-STAFF PHY W/O PRIVILEGES] - (Call tomorrow for appointment) Instructions: Cellulitis (Skin Infection), Adult (DC), Orbital Cellulitis (DC) Additional Instructions: Do not take Benadryl. Continue with steroids and antibiotics. Follow-up with primary care/dermatology/ophthalmology for reevaluation. Return to ER for worsening swelling around eye, difficulty movements of eyeball or pain in the eye itself or if develop fever or chills. Take Tylenol/ibuprofen as needed. Apply emollient on the skin. Prescriptions: Amox Tr/Potass Clav. 875 mg [Augmentin 875-125 Tablet] 875 mg PO BID 10 Days #19 tablet Clindamycin HCl 150 mg [Cleocin 150 mg Capsule] 2 cap PO QID #56 capsule Prednisone 20 mg [Deltasone 20 mg] 60 mg PO DAILY 5 Days #15 tablet
[2020-06-28 18:02] LABS: ALBUMIN 3.9 g/dL (3.5-5.0); ALKALINE PHOSPHATASE 172 U/L (38-126); ANION GAP 10.7 MEQ/L (5-15); BLOOD UREA NITROGEN 8 mg/dL (7-17); CHLORIDE 100 mmol/L (98-107); Calcium 9.2 mg/dL (8.4-10.2); Carbon Dioxide 30 mmol/L (22-30); Creatinine 1 0.71 mg/dL (0.52-1.04); EST GLOMERULAR FILTRATION RATE > 60.0 ML/MIN; Glucose 102 mg/dL (74-106); Potassium 4.2 mmol/L (3.5-5.1); SGOT/AST 23 U/L (14-36); SGPT/ALT 21 U/L (0-35); SODIUM 137 mmol/L (137-145); Total Protein 7.2 g/dL (6.3-8.2)
[2020-06-28 18:09] VITALS: PULSE 84
[2020-06-28] MEDS ORDERED: Augmentin 875-125 Tablet ONE (18:52)
[2020-06-28] MEDS: Augmentin 875-125 Tablet PO ONE (18:53)
[2020-06-28 19:18] VITALS: BP 139/88
--- NOTE | 2020-06-29 08:46 | XRAY ---
Indication: Left eye swelling. Multiple contiguous axial images obtained through the orbits prior to and following 80 cc Isovue 370 contrast as ordered. Comparison: None There is mild left maxillary and left periorbital soft tissue swelling. No suspicious fluid/air collection or radiopaque foreign body. Globes and optic nerves are bilaterally symmetric without retro-orbital mass. Remaining visualized soft tissues including base of the brain unremarkable. No acute fracture, suspicious bony lesions, or osseous destructive process. Paranasal sinuses, nasal passages, and visualized mastoid air cells are clear. Moderate nasal septal deviation to the right. No abnormal soft tissue or bony enhancement. Impression: 1. Left maxillary and left periorbital nonspecific soft tissue swelling. 2. Incidental nasal septal deviation. 3. Remaining CT orbits with and without contrast exam is negative. Comment: Preliminary interpretation was made by [facility]. No critical discrepancy.
[2020-07-03 19:47] VITALS: O2SAT 98
== END 2020-06-28 19:27 | disposition home or self-care (01) ==
LOC: ED 17:02
DX: L03.213 Periorbital cellulitis (principal); L30.9 Dermatitis, unspecified; R60.9 Edema, unspecified; L29.9 Pruritus, unspecified; F41.9 Anxiety disorder, unspecified; F17.210 Nicotine dependence, cigarettes, uncomplicated
CPT/HCPCS: 36000; 36415; 70482; 80053; 85025; 87040; 96365; 96374; 96375; 99284; J2405; J2930; A9270-GY

== ENCOUNTER 2020-09-25 15:04 | Emergency (ER) | payer OTHER ==
[2020-09-25] MEDS ORDERED: Sodium Chloride 0.9% 1000 ML 1,000 ML IV STA (15:46)
--- NOTE | 2020-09-25 15:50 | ERPHSYRPT ---
- History of Present Illness Time Seen by Provider: 09/25/20 15:10 Source: patient Exam Limitations: no limitations Patient Subjective Stated Complaint: PT states "I wqas with my daughter and I was sleepy so I went to sleep and they said they could not wake me up. This hap pened before when I took methadone and benadryl. They took me off benadryl and put my on hydroxyzine and I guess I have the same reaction" Triage Nursing Assessment: Pt presented alert and orietned X 3, skin pwd Pt ambulates with an upright steady gait, able to speak in clear full sentences. Pt in no apparent respiratory distress. Pt resting comfortably on the bed. Physician History: 30 years old female with history of anxiety depression, chronic pain on methadone presented in the ER after it was difficult to wake her up from sleep while she was in the hospital with her daughter who is admitted with RSV. Patient reports she took methadone and hydroxyzine before this happened. Also reports having similar kind of deep sleep problems with methadone and Benadryl and she was switched to hydroxyzine. They had to sternal rub to wake her up. She denies any confusion, numbness tingling weakness upon waking up. Denies any chest pain palpitations or shortness of breath. Denies any alcohol or drug use. Timing/Duration: today, resolved prior to arrival, improved Severity: moderate Modifying Factors: Improves With: other Associated Symptoms: denies symptoms Allergies/Adverse Reactions: codeine Allergy (Intermediate, Verified 06/28/20 17:15) Rash miconazole nitrate [From Monistat 3] Allergy (Intermediate, Verified 06/28/20 17:15) Swelling buprenorphine [From Butrans] Allergy (Verified 06/28/20 17:15) citalopram [From Celexa] Allergy (Verified 06/28/20 17:15) sertraline [From Zoloft] Allergy (Verified 06/28/20 17:15) diphenhydramine [From Benadryl] Adverse Reaction (Severe, Verified 09/25/20 15 :32) syncope Home Medications: Methadone HCl [Dolophine HCl] 80 mg PO DAILY 05/12/19 [History] ARIPiprazole [Abilify Mycite] 2 mg PO DAILY 09/25/20 [History] Hydroxyzine HCl 25 mg [Atarax 25 mg] 25 mg PO DAILY 09/25/20 [History] Ondansetron HCl 4 mg PO DAILY 09/25/20 [History] Hx Tetanus, Diphtheria Vaccination/Date Given: No Hx Influenza Vaccination/Date Given: Yes Hx Pneumococcal Vaccination/Date Given: No Immunizations Up to Date: Yes Travel Risk - International Travel Have you traveled outside of the country in past 3 weeks: No - Coronavirus Screening Are you exhibiting any of the following symptoms?: No Close contact with a COVID-19 positive Pt in past 14-21 Days: No - Vaccine Status Have you recieved a Covid-19 vaccination: No - Review of Systems Constitutional: No Symptoms Eyes: No Symptoms Ears, Nose, & Throat: No Symptoms Respiratory: No Symptoms Cardiac: No Symptoms Abdominal/Gastrointestinal: No Symptoms Genitourinary Symptoms: No Symptoms Musculoskeletal: No Symptoms Neurological: No Symptoms Psychological: Anxiety Endocrine: No Symptoms Hematologic/Lymphatic: No Symptoms Immunological/Allergic: No Symptoms - Past Medical History Pertinent Past Medical History: Yes Neurological History: No Pertinent History ENT History: No Pertinent History Cardiac History: No Pertinent History Respiratory History: No Pertinent History Endocrine Medical History: No Pertinent History Musculoskeletal History: No Pertinent History GI Medical History: Pancreatitis, Other History: No Pertinent History Psycho-Social History: No Pertinent History Female Reproductive Disorders: No Pertinent History Other Medical History: lupus, constipation - Past Surgical History Past Surgical History: Yes Neuro Surgical History: No Pertinent History Cardiac: No Pertinent History Respiratory: No Pertinent History Gastrointestinal: Cholecystectomy Genitourinary: No Pertinent History Musculoskeletal: No Pertinent History Female Surgical History: Other Other Surgical History: LEEP Procedure;. CERVICAL ABLATION - Social History Smoking Status: Current every day smoker How long have you smoked: 15 yrs Exposure to second hand smoke: Yes Alcohol Use: Socially Drug Use: none Patient Lives Alone: No Significant Family History: no pertinent family hx - Female History Hx Last Menstrual Period: 05/2019 Hx Now: No - Nursing Vital Signs Nursing Vital Signs: Initial Vital Signs Temperature 98.0 F 09/25/20 15:22 Pulse Rate 88 09/25/20 15:22 Respiratory Rate 20 09/25/20 15:22 Blood Pressure 139/96 09/25/20 15:22 O2 Sat by Pulse Oximetry 98 09/25/20 15:22 Pain Scale Pain Intensity 0 - Physical Exam General Appearance: no apparent distress, alert, anxiety Eye Exam: PERRL/EOMI, eyes nml inspection Ears, Nose, Throat Exam: normal ENT inspection, TMs normal, pharynx normal Neck Exam: normal inspection, non-tender, supple, full range of motion Respiratory Exam: normal breath sounds, lungs clear Cardiovascular Exam: regular rate/rhythm, normal heart sounds Gastrointestinal/Abdomen Exam: soft, normal bowel sounds, No tenderness Back Exam: normal inspection, normal range of motion Extremity Exam: normal inspection, normal range of motion Neurologic Exam: alert, oriented x 3, cooperative, flatwork folder II-XII nml as tested, nml cerebellar function, nml station & gait, sensation nml, No motor deficits, No sensory deficit Skin Exam: normal color SpO2 Interpretation: normal SpO2: 98 O2 Delivery: Room Air - Course EKG Interpreted by Me: RATE (82), Sinus Rhythm, NORMAL AXIS, prolonged QT interval, Non-specific ST Changes (None specific T wave changes) Ordered Tests: Active Orders 24 hr Category Date Time Status Medical Parasitologist STAT Care 09/25/20 15:46 Active EKG-ER Only STAT Care 09/25/20 15:46 Active IV Insertion STAT Care 09/25/20 15:46 Active Orthostatic Vital Signs STAT Care 09/25/20 15:47 Active CBC W DIFF Stat Lab 09/25/20 16:03 Completed CMP Stat Lab 09/25/20 16:03 Completed ETHYL ALCOHOL Stat Lab 09/25/20 16:03 Completed HCG,QUALITATIVE URINE Stat Lab 09/25/20 15:46 Completed TROPONIN Q3H Lab 09/25/20 16:03 Completed TROPONIN Q3H Lab 09/25/20 19:00 Ordered TROPONIN Q3H Lab 09/25/20 22:00 Ordered TROPONIN Q3H Lab 09/26/20 01:00 Ordered TROPONIN Q3H Lab 09/26/20 04:00 Ordered UA W/RFX UR CULTURE Stat Lab 09/25/20 15:46 Completed Urine Triage Profile Stat Lab 09/25/20 16:34 Completed Medication Summary Discontinued Medications Generic Name Dose Route Start Last Admin Trade Name Freq PRN Reason Stop Dose Admin Sodium Chloride 1,000 mls @ 999 mls/hr 09/25/20 15:46 09/25/20 17:50 Sodium Chloride 0.9% 1000 Ml IV 09/25/20 16:46 Infused .Q1H1M STA Infusion Sodium Chloride Confirm 09/25/20 16:33 Sodium Chloride 0.9% 1000 Ml Administered 09/25/20 16:34 Dose 1,000 mls @ .ROUTE .[facility] Lab/Rad Data: Laboratory Result Diagrams 09/25/20 16:03 09/25/20 16:03 Laboratory Results 09/25/20 09/25/20 09/25/20 Range/Units 16:34 16:03 16:03 WBC (4.0-10.5) K/mm3 RBC (4.1-5.4) M/mm3 Hgb (12.0-16.0) gm/dl Hct (35-47) % MCV (78-100) fl MCH (26-32) pg MCHC (32-36) g/dl RDW (11.5-14.0) % Plt Count (150-450) K/mm3 MPV (7.5-11.0) fl Gran % (36.0-66.0) % Eos # (Auto) (0-0.5) Absolute Lymphs (auto) (1.0-4.6) Absolute Monos (auto) (0.0-1.3) Lymphocytes % (24.0-44.0) % Monocytes % (0.0-12.0) % Eosinophils % (0.00-5.0) % Basophils % (0.0-0.4) % Absolute Granulocytes (1.4-6.9) Basophils # (0-0.4) Sodium 136 L (137-145) mmol/L Potassium 4.2 (3.5-5.1) mmol/L Chloride 100 (98-107) mmol/L Carbon Dioxide 30 (22-30) mmol/L Anion Gap 11.1 (5-15) MEQ/L BUN 11 (7-17) mg/dL Creatinine 0.72 (0.52-1.04) mg/dL Estimated GFR > 60.0 ML/MIN Glucose 85 (74-106) mg/dL Calcium 9.7 (8.4-10.2) mg/dL Total Bilirubin 0.20 (0.2-1.3) mg/dL AST 42 H (14-36) U/L ALT 49 H (0-35) U/L Alkaline Phosphatase 123 (38-126) U/L Troponin I < 0.012 (0.000-0.034) ng/mL Serum Total Protein 7.2 (6.3-8.2) g/dL Albumin 4.3 (3.5-5.0) g/dL Urine Color (YELLOW) Urine Appearance (CLEAR) Urine pH (5-6) Ur Specific Flushing (1.005-1.025) Urine Protein (Negative) Urine Ketones (NEGATIVE) Urine Blood (0-5) Murray/ul Urine Nitrite (NEGATIVE) Urine Bilirubin (NEGATIVE) Urine Urobilinogen (0-1) mg/dL Ur Leukocyte Esterase (NEGATIVE) Urine WBC (Auto) (0-5) /HPF Urine RBC (Auto) (0-2) /HPF U Epithel Cells (Auto) (FEW) /HPF Urine Bacteria (Auto) (NEGATIVE) /HPF Urine Mucus (Auto) (NEGATIVE) /HPF Urine Culture Reflexed (NO) Urine Glucose (NEGATIVE) mg/dL Urine HCG, Qual (Negative) Urine Opiates Level NEGATIVE (NEGATIVE) Ur Methadone POSITIVE (NEGATIVE) Urine Barbiturates NEGATIVE (NEGATIVE) Ur Phencyclidine (PCP) NEGATIVE (NEGATIVE) Urine Amphetamine NEGATIVE (NEGATIVE) U Benzodiazepine Level NEGATIVE (NEGATIVE) Urine Cocaine NEGATIVE (NEGATIVE) Urine Marijuana (THC) NEGATIVE (NEGATIVE) Ethyl Alcohol < 10 (0-10) mg/dL 09/25/20 09/25/20 09/25/20 Range/Units 16:03 15:46 15:46 WBC 7.7 (4.0-10.5) K/mm3 RBC 4.39 (4.1-5.4) M/mm3 Hgb 12.4 (12.0-16.0) gm/dl Hct 39.5 (35-47) % MCV 90.0 (78-100) fl MCH 28.2 (26-32) pg MCHC 31.4 L (32-36) g/dl RDW 13.5 (11.5-14.0) % Plt Count 285 (150-450) K/mm3 MPV 9.8 (7.5-11.0) fl Gran % 46.7 (36.0-66.0) % Eos # (Auto) 0.23 (0-0.5) Absolute Lymphs (auto) 3.46 (1.0-4.6) Absolute Monos (auto) 0.38 (0.0-1.3) Lymphocytes % 45.0 H (24.0-44.0) % Monocytes % 4.9 (0.0-12.0) % Eosinophils % 3.0 (0.00-5.0) % Basophils % 0.4 (0.0-0.4) % Absolute Granulocytes 3.59 (1.4-6.9) Basophils # 0.03 (0-0.4) Sodium (137-145) mmol/L Potassium (3.5-5.1) mmol/L Chloride (98-107) mmol/L Carbon Dioxide (22-30) mmol/L Anion Gap (5-15) MEQ/L BUN (7-17) mg/dL Creatinine (0.52-1.04) mg/dL Estimated GFR ML/MIN Glucose (74-106) mg/dL Calcium (8.4-10.2) mg/dL Total Bilirubin (0.2-1.3) mg/dL AST (14-36) U/L ALT (0-35) U/L Alkaline Phosphatase (38-126) U/L Troponin I (0.000-0.034) ng/mL Serum Total Protein (6.3-8.2) g/dL Albumin (3.5-5.0) g/dL Urine Color YELLOW (YELLOW) Urine Appearance SLIGHTLY CLOUDY (CLEAR) Urine pH 5.0 (5-6) Ur Specific Flushing 1.017 (1.005-1.025) Urine Protein NEGATIVE (Negative) Urine Ketones NEGATIVE (NEGATIVE) Urine Blood NEGATIVE (0-5) Murray/ul Urine Nitrite NEGATIVE (NEGATIVE) Urine Bilirubin NEGATIVE (NEGATIVE) Urine Urobilinogen NEGATIVE (0-1) mg/dL Ur Leukocyte Esterase TRACE (NEGATIVE) Urine WBC (Auto) 3-5 (0-5) /HPF Urine RBC (Auto) 3-5 (0-2) /HPF U Epithel Cells (Auto) RARE (FEW) /HPF Urine Bacteria (Auto) RARE (NEGATIVE) /HPF Urine Mucus (Auto) SLIGHT (NEGATIVE) /HPF Urine Culture Reflexed NO (NO) Urine Glucose NEGATIVE (NEGATIVE) mg/dL Urine HCG, Qual NEGATIVE (Negative) Urine Opiates Level (NEGATIVE) Ur Methadone (NEGATIVE) Urine Barbiturates (NEGATIVE) Ur Phencyclidine (PCP) (NEGATIVE) Urine Amphetamine (NEGATIVE) U Benzodiazepine Level (NEGATIVE) Urine Cocaine (NEGATIVE) Urine Marijuana (THC) (NEGATIVE) Ethyl Alcohol (0-10) mg/dL - Progress Progress: improved, re-examined Progress Note: 09/25/20 17:51 30 years old is evaluated for difficulty waking up after taking methadone and hydroxyzine. She has a nonfocal neuro exam. EKG did not show any acute ischemic changes. Negative orthostatics. Negative initial troponins. Grossly unremarkable chemistries except for mildly elevated transaminases. Negative blood alcohol and urine drug screen positive only for THC. I believe patient symptoms are due to combination of methadone with hydroxyzine producing deep sleep effect. She is advised not to take the 2 medications together and probably needs to take them few hours apart. Also if she can stop taking hydroxyzine would be better but talk to her primary care before doing that to avoid any withdrawals. I do not think she needs any imaging or other work-up and is stable for discharge. Counseled pt/family regarding: lab results, diagnosis, need for follow-up - Departure Departure Disposition: Home Clinical Impression: Adverse drug interaction with prescription medication Condition: Stable Critical Care Time: No Referrals: ANGIE WYATT MD [Primary Care Provider] - Follow Up with PCP/3 days Instructions: Syncope (Fainting) (DC), Adverse Drug Reactions, Adult (DC) Additional Instructions: Drink plenty of fluids. Do not take methadone and hydroxyzine together. You should take them 4 to 6 hours apart. Follow-up with your primary care and pain management for reevaluation. Return to ER for any worsening symptoms of sleepiness, numbness tingling weakness, altered mental status etc.
[2020-09-25 16:09] LABS: Absolute Neutrophil Ct (ANC) 3.59 (1.4-6.9); BASOPHIL % 0.4 % (0.0-0.4); Basophil (Absolute #) 0.03 (0-0.4); Eosinophil (Absolute #) 0.23 (0-0.5); Hematocrit 39.5 % (35-47); Hemoglobin 12.4 gm/dl (12.0-16.0); Lymphocyte (Absolute #) 3.46 (1.0-4.6); Mean Corpuscular Hemoglobin 28.2 pg (26-32); Mean Corpuscular Hgb Concent. 31.4 g/dl (32-36); Mean Platelet Volume 9.8 fl (7.5-11.0); Monocyte (Absolute #) 0.38 (0.0-1.3); Monocytes % 4.9 % (0.0-12.0); Neutrophil % 46.7 % (36.0-66.0); Platelet Count 285 K/mm3 (150-450); Red Blood Count 4.39 M/mm3 (4.1-5.4); Red Cell Distribution Width 13.5 % (11.5-14.0); White Blood Count 7.7 K/mm3 (4.0-10.5)
[2020-09-25 16:23] LABS: Appearance SLIGHTLY CLOUDY (CLEAR); Bacteria RARE /HPF (NEGATIVE); Bilirubin NEGATIVE (NEGATIVE); Blood NEGATIVE Ery/ul (0-5); Epithelial Cells RARE /HPF (FEW); Glucose NEGATIVE (NEGATIVE); Ketones NEGATIVE (NEGATIVE); Leukocyte Esterase TRACE (NEGATIVE); Mucus SLIGHT /HPF (NEGATIVE); Nitrite NEGATIVE (NEGATIVE); Protein,Urine Dip NEGATIVE (Negative); Specific Gravity 1.017 (1.005-1.025); Urobilinogen NEGATIVE mg/dL (0-1)
[2020-09-25 16:26] LABS: ALBUMIN 4.3 g/dL (3.5-5.0); ALKALINE PHOSPHATASE 123 U/L (38-126); ANION GAP 11.1 MEQ/L (5-15); BLOOD UREA NITROGEN 11 mg/dL (7-17); CHLORIDE 100 mmol/L (98-107); Calcium 9.7 mg/dL (8.4-10.2); Carbon Dioxide 30 mmol/L (22-30); Creatinine 1 0.72 mg/dL (0.52-1.04); EST GLOMERULAR FILTRATION RATE > 60.0 ML/MIN; ETHYL ALCOHOL < 10 mg/dL (0-10); Glucose 85 mg/dL (74-106); Potassium 4.2 mmol/L (3.5-5.1); SGOT/AST 42 U/L (14-36); SGPT/ALT 49 U/L (0-35); SODIUM 136 mmol/L (137-145); Total Protein 7.2 g/dL (6.3-8.2)
[2020-09-25] MEDS ORDERED: Sodium Chloride 0.9% 1000 ML 1,000 ML ONE (16:33)
[2020-09-25 16:39] LABS: Amphetamine,Urine NEGATIVE (NEGATIVE); Barbiturate,Urine NEGATIVE (NEGATIVE); Benzodiazepine,Urine NEGATIVE (NEGATIVE); Cocaine,Urine NEGATIVE (NEGATIVE); Methadone,Urine POSITIVE (NEGATIVE); Opiate,Urine NEGATIVE (NEGATIVE); PCP,Urine NEGATIVE (NEGATIVE); THC,Urine NEGATIVE (NEGATIVE)
[2020-09-25 18:00] VITALS: BP 137/94; PULSE 80
[2020-09-25 18:06] VITALS: O2SAT 98
== END 2020-09-25 18:06 | disposition home or self-care (01) ==
LOC: ED 15:04
DX: T50.995A Adverse effect of other drugs, medicaments and biological substances, initial encounter (principal)
CPT/HCPCS: 36000; 36415; 80053; 80307; 81001; 84484; 84703; 85025; 93005; 93041; 96360; 99284; G0480; 96374

== ENCOUNTER 2021-01-07 11:18 | Emergency (ER) | payer OTHER ==
[2021-01-07] MEDS ORDERED: solu-MEDROL 125 MG, Sterile H2O 10 ml 2 ML IV ONE ×2 (11:59)
[2021-01-07] MEDS ORDERED: Sodium Chloride 0.9% 1000 ML 1,000 ML IV STA (11:59)
[2021-01-07] MEDS ORDERED: TORAdol 30 mg Injection IV ONE (12:10)
[2021-01-07] MEDS ORDERED: Sodium Chloride 0.9% 1000 ML 1,000 ML ONE (12:10)
[2021-01-07] MEDS ORDERED: Sterile H2O 10 ml IJ ONE (12:10)
[2021-01-07] MEDS ORDERED: solu-MEDROL ONE (12:10)
[2021-01-07] MEDS ORDERED: TORAdol 30 mg Injection ONE (12:11)
[2021-01-07] MEDS ORDERED: Reglan 10 MG/2 ML IV ONE (12:11)
[2021-01-07] MEDS ORDERED: Reglan 10 MG/2 ML ONE (12:12)
--- NOTE | 2021-01-07 12:28 | ERPHSYRPT ---
- History of Present Illness Time Seen by Provider: 01/07/21 11:40 Source: patient Exam Limitations: no limitations Patient Subjective Stated Complaint: PT states "I have been congested and my head and ears are fuzzy. I was laying at home and got up to go to [employer] when I got dizzy and my eyes had double vision." Triage Nursing Assessment: Pt presented alert and oriented X 3, skin pwd. Pt ambulates with an upright steady gait, able to speak in complete full sentences pt in no appraent respiratory distress. Physician History: Patient is a 30-year-old white female who had a supposed exposure to COVID and was tested yesterday to [facility] outpatient clinic. Today she developed a headache became very dizzy after laying down and had some double vision. She has had some chest congestion head congestion and a headache. She is coughing up green sputum she denies any fever chills or sweats she denies any change in taste or smell and she denies nausea and vomiting but has had some diarrhea. She has a history of migraines and thinks she may have had double vision in the past with her migraines. Timing/Duration: today Severity: moderate Modifying Factors: Improves With: movement Associated Symptoms: shortness of breath, cough Allergies/Adverse Reactions: codeine Allergy (Intermediate, Verified 06/28/20 17:15) Rash miconazole nitrate [From Monistat 3] Allergy (Intermediate, Verified 06/28/20 17:15) Swelling buprenorphine [From Butrans] Allergy (Verified 06/28/20 17:15) citalopram [From Celexa] Allergy (Verified 06/28/20 17:15) sertraline [From Zoloft] Allergy (Verified 06/28/20 17:15) diphenhydramine [From Benadryl] Adverse Reaction (Severe, Verified 09/25/20 15:32) syncope Home Medications: Methadone HCl [Dolophine HCl] 80 mg PO DAILY 05/12/19 [History] ARIPiprazole [Abilify Mycite] 2 mg PO DAILY 09/25/20 [History] Hydroxyzine HCl 25 mg [Atarax 25 mg] 25 mg PO DAILY 09/25/20 [History] Ondansetron HCl 4 mg PO DAILY 09/25/20 [History] Hx Tetanus, Diphtheria Vaccination/Date Given: Yes Hx Influenza Vaccination/Date Given: Yes Hx Pneumococcal Vaccination/Date Given: No Immunizations Up to Date: Yes Travel Risk - International Travel Have you traveled outside of the country in past 3 weeks: No - Coronavirus Screening Are you exhibiting any of the following symptoms?: No Close contact with a COVID-19 positive Pt in past 14-21 Days: Yes - Vaccine Status Have you recieved a Covid-19 vaccination: No - Review of Systems Constitutional: No Fever, No Chills Eyes: Double Vision Ears, Nose, & Throat: No Symptoms Respiratory: Cough, Dyspnea, Dyspnea on Exertion (MCCRARY) Cardiac: No Chest Pain, No Edema, No Syncope Abdominal/Gastrointestinal: Diarrhea, No Abdominal Pain, No Nausea, No Vomiting Genitourinary Symptoms: No Dysuria Musculoskeletal: No Back Pain, No Neck Pain Skin: No Rash Neurological: Dizziness, Headache, Vertigo, No Focal Weakness, No Sensory Changes Psychological: No Symptoms Endocrine: No Symptoms All Other Systems: Reviewed and Negative - Past Medical History Pertinent Past Medical History: Yes Neurological History: No Pertinent History ENT History: No Pertinent History Cardiac History: No Pertinent History Respiratory History: No Pertinent History Endocrine Medical History: No Pertinent History Musculoskeletal History: No Pertinent History GI Medical History: Pancreatitis, Other History: No Pertinent History Psycho-Social History: No Pertinent History Female Reproductive Disorders: No Pertinent History Other Medical History: lupus, constipation - Past Surgical History Past Surgical History: Yes Neuro Surgical History: No Pertinent History Cardiac: No Pertinent History Respiratory: No Pertinent History Gastrointestinal: Cholecystectomy Genitourinary: No Pertinent History Musculoskeletal: No Pertinent History Female Surgical History: Other Other Surgical History: LEEP Procedure;. CERVICAL ABLATION - Social History Smoking Status: Current every day smoker How long have you smoked: 1 pack Exposure to second hand smoke: Yes Alcohol Use: Socially Drug Use: none Patient Lives Alone: No Significant Family History: no pertinent family hx - Female History Hx Last Menstrual Period: 05/2020 Hx Now: No - Nursing Vital Signs Nursing Vital Signs: Initial Vital Signs Temperature 97.8 F 01/07/21 11:28 Pulse Rate 107 H 01/07/21 11:28 Respiratory Rate 20 01/07/21 11:28 Blood Pressure 129/90 01/07/21 11:28 O2 Sat by Pulse Oximetry 96 01/07/21 11:28 Pain Scale Pain Intensity 0 - Physical Exam General Appearance: mild distress, alert Eye Exam: PERRL/EOMI, eyes nml inspection, No EOM palsy/anisocoria Ears, Nose, Throat Exam: normal ENT inspection, TMs normal, pharynx normal, moist mucous membranes, other (Nasal congestion and discharge) Neck Exam: normal inspection, non-tender, supple, full range of motion Respiratory Exam: lungs clear, rhonchi, No respiratory distress Cardiovascular Exam: regular rate/rhythm, normal heart sounds, normal peripheral pulses Gastrointestinal/Abdomen Exam: soft, normal bowel sounds, No tenderness, No mass Back Exam: normal inspection, normal range of motion, No CVA tenderness, No vertebral tenderness Extremity Exam: normal inspection, normal range of motion, pelvis stable Neurologic Exam: alert, oriented x 3, cooperative, normal mood/affect, nml cerebellar function, nml station & gait, sensation nml, No motor deficits Skin Exam: normal color, warm, dry, No rash Lymphatic Exam: No adenopathy SpO2 Interpretation: normal SpO2: 96 O2 Delivery: Room Air - Course Nursing assessment & vital signs reviewed: Yes EKG Interpreted by Me: RATE (78), NORMAL AXIS, NORMAL INTERVALS, Non-specific ST Changes - Radiology Exams Chest X-ray Interpretation: Negative - CT Exams Head CT Interpretation: Negative Maxillofacial Bones CT Interpretation: Other (Left maxillary sinusitis) Ordered Tests: Active Orders 24 hr Category Date Time Status Business Test Analyst STAT Care 01/07/21 12:00 Active EKG-ER Only STAT Care 01/07/21 11:59 Active Pulse Oximetry (ED) STAT Care 01/07/21 11:59 Active CHEST 1 VIEW (PORTABLE) Stat Exams 01/07/21 12:00 Completed HEAD WITHOUT CONTRAST [CT] Stat Exams 01/07/21 11:58 Completed SINUSES WITHOUT CONTRAST [CT] Stat Exams 01/07/21 11:58 Completed BLOOD CULTURE Stat Lab 01/07/21 12:41 Received CBC W DIFF Stat Lab 01/07/21 11:59 Completed CMP Stat Lab 01/07/21 12:51 Completed D-DIMER QUANTITATIVE Stat Lab 01/07/21 12:51 Completed INFLUENZA A+B YUSEF Stat Lab 01/07/21 12:51 Completed Lactic Acid Stat Lab 01/07/21 11:59 Completed PROCALCITONIN Stat Lab 01/07/21 12:51 Completed TROPONIN Q3H Lab 01/07/21 12:51 Completed TROPONIN Q3H Lab 01/07/21 15:15 Ordered TROPONIN Q3H Lab 01/07/21 18:15 Ordered TROPONIN Q3H Lab 01/07/21 21:15 Ordered UA W/RFX UR CULTURE Stat Lab 01/07/21 12:06 Completed Medication Summary Discontinued Medications Generic Name Dose Route Start Last Admin Trade Name Terrie PRN Reason Stop Dose Admin Methylprednisolone Sodium 0 mg 01/07/21 11:59 01/07/21 12:11 Succinate 125 mg/ Sterile IV 01/07/21 12:00 125 mg Water 2 ml STAT ONE Administration Sodium Chloride 1,000 mls @ 999 mls/hr 01/07/21 11:59 01/07/21 13:24 Sodium Chloride 0.9% 1000 Ml IV 01/07/21 12:59 Infused .Q1H1M STA Infusion Sodium Chloride Confirm 01/07/21 12:10 Sodium Chloride 0.9% 1000 Ml Administered 01/07/21 12:11 Dose 1,000 mls @ ud .ROUTE .STK-MED ONE Ketorolac Tromethamine 30 mg 01/07/21 12:10 01/07/21 12:17 Toradol 30 Mg Injection IV 01/07/21 12:11 30 mg STAT ONE Administration Ketorolac Tromethamine Confirm 01/07/21 12:11 Toradol 30 Mg Injection Administered 01/07/21 12:12 Dose 30 mg .ROUTE .STK-MED ONE Methylprednisolone Sodium Succinate Confirm 01/07/21 12:10 Solu-Medrol Administered 01/07/21 12:11 Dose 125 mg .ROUTE .STK-MED ONE Metoclopramide HCl 10 mg 01/07/21 12:11 01/07/21 12:18 Reglan 10 Mg/2 Ml IV 01/07/21 12:12 10 mg STAT ONE Administration Metoclopramide HCl Confirm 01/07/21 12:12 Reglan 10 Mg/2 Ml Administered 01/07/21 12:13 Dose 10 mg .ROUTE .STK-MED ONE Sterile Water Confirm 01/07/21 12:10 Sterile H2o 10 Ml Administered 01/07/21 12:11 Dose 10 ml IJ .STK-MED ONE Lab/Rad Data: Laboratory Result Diagrams 01/07/21 11:59 01/07/21 12:51 Laboratory Results 01/07/21 01/07/21 01/07/21 Range/Units 12:51 12:51 12:51 WBC (4.0-10.5) K/mm3 RBC (4.1-5.4) M/mm3 Hgb (12.0-16.0) gm/dl Hct (35-47) % MCV (78-100) fl MCH (26-32) pg MCHC (32-36) g/dl RDW (11.5-14.0) % Plt Count (150-450) K/mm3 MPV (7.5-11.0) fl Gran % (36.0-66.0) % Eos # (Auto) (0-0.5) Absolute Lymphs (auto) (1.0-4.6) Absolute Monos (auto) (0.0-1.3) Lymphocytes % (24.0-44.0) % Monocytes % (0.0-12.0) % Eosinophils % (0.00-5.0) % Basophils % (0.0-0.4) % Absolute Granulocytes (1.4-6.9) Basophils # (0-0.4) D-Dimer 419 (215-500) ng/mL Sodium (137-145) mmol/L Potassium (3.5-5.1) mmol/L Chloride (98-107) mmol/L Carbon Dioxide (22-30) mmol/L Anion Gap (5-15) MEQ/L BUN (7-17) mg/dL Creatinine (0.52-1.04) mg/dL Estimated GFR ML/MIN Glucose (74-106) mg/dL Lactic Acid (0.4-2.0) Calcium (8.4-10.2) mg/dL Total Bilirubin (0.2-1.3) mg/dL AST (14-36) U/L ALT (0-35) U/L Alkaline Phosphatase (38-126) U/L Troponin I < 0.012 (0.000-0.034) ng/mL Serum Total Protein (6.3-8.2) g/dL Albumin (3.5-5.0) g/dL Procalcitonin 0.044 (0.030-0.080) ng/mL Urine Color (YELLOW) Urine Appearance (CLEAR) Urine pH (5-6) Ur Specific [place] (1.005-1.025) Urine Protein (Negative) Urine Ketones (NEGATIVE) Urine Blood (0-5) Murray/ul Urine Nitrite (NEGATIVE) Urine Bilirubin (NEGATIVE) Urine Urobilinogen (0-1) mg/dL Ur Leukocyte Esterase (NEGATIVE) Urine WBC (Auto) (0-5) /HPF Urine RBC (Auto) (0-2) /HPF U Epithel Cells (Auto) (FEW) /HPF Urine Bacteria (Auto) (NEGATIVE) /HPF Urine Mucus (Auto) (NEGATIVE) /HPF Urine Culture Reflexed (NO) Urine Glucose (NEGATIVE) mg/dL Influenza Type A Ag (NEGATIVE) Influenza Type B Ag (NEGATIVE) Group A Strep Antibody (NEGATIVE) 01/07/21 01/07/21 01/07/21 Range/Units 12:51 12:51 12:51 WBC (4.0-10.5) K/mm3 RBC (4.1-5.4) M/mm3 Hgb (12.0-16.0) gm/dl Hct (35-47) % MCV (78-100) fl MCH (26-32) pg MCHC (32-36) g/dl RDW (11.5-14.0) % Plt Count (150-450) K/mm3 MPV (7.5-11.0) fl Gran % (36.0-66.0) % Eos # (Auto) (0-0.5) Absolute Lymphs (auto) (1.0-4.6) Absolute Monos (auto) (0.0-1.3) Lymphocytes % (24.0-44.0) % Monocytes % (0.0-12.0) % Eosinophils % (0.00-5.0) % Basophils % (0.0-0.4) % Absolute Granulocytes (1.4-6.9) Basophils # (0-0.4) D-Dimer (215-500) ng/mL Sodium 137 (137-145) mmol/L Potassium 3.4 L (3.5-5.1) mmol/L Chloride 99 (98-107) mmol/L Carbon Dioxide 29 (22-30) mmol/L Anion Gap 12.3 (5-15) MEQ/L BUN 11 (7-17) mg/dL Creatinine 0.64 (0.52-1.04) mg/dL Estimated GFR > 60.0 ML/MIN Glucose 79 (74-106) mg/dL Lactic Acid (0.4-2.0) Calcium 9.0 (8.4-10.2) mg/dL Total Bilirubin 0.30 (0.2-1.3) mg/dL AST 54 H (14-36) U/L ALT 47 H (0-35) U/L Alkaline Phosphatase 87 (38-126) U/L Troponin I (0.000-0.034) ng/mL Serum Total Protein 6.7 (6.3-8.2) g/dL Albumin 4.1 (3.5-5.0) g/dL Procalcitonin (0.030-0.080) ng/mL Urine Color (YELLOW) Urine Appearance (CLEAR) Urine pH (5-6) Ur Specific [place] (1.005-1.025) Urine Protein (Negative) Urine Ketones (NEGATIVE) Urine Blood (0-5) Murray/ul Urine Nitrite (NEGATIVE) Urine Bilirubin (NEGATIVE) Urine Urobilinogen (0-1) mg/dL Ur Leukocyte Esterase (NEGATIVE) Urine WBC (Auto) (0-5) /HPF Urine RBC (Auto) (0-2) /HPF U Epithel Cells (Auto) (FEW) /HPF Urine Bacteria (Auto) (NEGATIVE) /HPF Urine Mucus (Auto) (NEGATIVE) /HPF Urine Culture Reflexed (NO) Urine Glucose (NEGATIVE) mg/dL Influenza Type A Ag NEGATIVE (NEGATIVE) Influenza Type B Ag NEGATIVE (NEGATIVE) Group A Strep Antibody NOT DETECTED (NEGATIVE) 01/07/21 01/07/21 01/07/21 Range/Units 12:06 11:59 11:59 WBC 2.4 L (4.0-10.5) K/mm3 RBC 4.50 (4.1-5.4) M/mm3 Hgb 13.2 (12.0-16.0) gm/dl Hct 40.7 (35-47) % MCV 90.4 (78-100) fl MCH 29.3 (26-32) pg MCHC 32.4 (32-36) g/dl RDW 13.1 (11.5-14.0) % Plt Count 161 (150-450) K/mm3 MPV 10.6 (7.5-11.0) fl Gran % 51.9 (36.0-66.0) % Eos # (Auto) 0.02 (0-0.5) Absolute Lymphs (auto) 0.90 L (1.0-4.6) Absolute Monos (auto) 0.20 (0.0-1.3) Lymphocytes % 38.3 (24.0-44.0) % Monocytes % 8.5 (0.0-12.0) % Eosinophils % 0.9 (0.00-5.0) % Basophils % 0.4 (0.0-0.4) % Absolute Granulocytes 1.22 L (1.4-6.9) Basophils # 0.01 (0-0.4) D-Dimer (215-500) ng/mL Sodium (137-145) mmol/L Potassium (3.5-5.1) mmol/L Chloride (98-107) mmol/L Carbon Dioxide (22-30) mmol/L Anion Gap (5-15) MEQ/L BUN (7-17) mg/dL Creatinine (0.52-1.04) mg/dL Estimated GFR ML/MIN Glucose (74-106) mg/dL Lactic Acid 0.5 (0.4-2.0) Calcium (8.4-10.2) mg/dL Total Bilirubin (0.2-1.3) mg/dL AST (14-36) U/L ALT (0-35) U/L Alkaline Phosphatase (38-126) U/L Troponin I (0.000-0.034) ng/mL Serum Total Protein (6.3-8.2) g/dL Albumin (3.5-5.0) g/dL Procalcitonin (0.030-0.080) ng/mL Urine Color YELLOW (YELLOW) Urine Appearance SLIGHTLY CLOUDY (CLEAR) Urine pH 6.0 (5-6) Ur Specific [place] 1.014 (1.005-1.025) Urine Protein NEGATIVE (Negative) Urine Ketones NEGATIVE (NEGATIVE) Urine Blood NEGATIVE (0-5) Murray/ul Urine Nitrite NEGATIVE (NEGATIVE) Urine Bilirubin NEGATIVE (NEGATIVE) Urine Urobilinogen 2 (0-1) mg/dL Ur Leukocyte Esterase NEGATIVE (NEGATIVE) Urine WBC (Auto) 3-5 (0-5) /HPF Urine RBC (Auto) NONE (0-2) /HPF U Epithel Cells (Auto) RARE (FEW) /HPF Urine Bacteria (Auto) RARE (NEGATIVE) /HPF Urine Mucus (Auto) SLIGHT (NEGATIVE) /HPF Urine Culture Reflexed NO (NO) Urine Glucose NEGATIVE (NEGATIVE) mg/dL Influenza Type A Ag (NEGATIVE) Influenza Type B Ag (NEGATIVE) Group A Strep Antibody (NEGATIVE) - Progress Progress: improved - Departure Departure Disposition: Home Clinical Impression: Sinusitis, Complicated migraine Condition: Stable Critical Care Time: No Referrals: ANGIE WYATT MD [Primary Care Provider] - Instructions: Vertigo (a Type of Dizziness) (DC) Prescriptions: Cefdinir 300 mg PO BID 7 Days #14 cap
--- NOTE | 2021-01-07 12:41 | XRAY ---
Indication: Headache, dizziness, confusion, and blurred vision. Multiple contiguous images obtained through the paranasal sinuses. Sagittal and coronal reformatted images obtained. Comparison: None. Floor left maxillary sinus demonstrates minimal mucosal thickening. Remaining paranasal sinuses, ostiomeatal units, and nasal passages are clear. Mild nasal septal deviation to the right. No acute fracture, suspicious bony lesions, or radiopaque foreign body. Remaining visualized noncontrasted soft tissues including orbits and base of the brain are unremarkable. Impression: Minimal left maxillary sinus disease and incidental nasal septal deviation. Remaining CT sinuses negative.
--- NOTE | 2021-01-07 12:44 | XRAY ---
Indication: Headache, dizziness, confusion, and blurred vision. Multiple contiguous images obtained through the head without contrast. Comparison: July 25, 2017. Normal appearing brain parenchyma, ventricles, and bony calvarium. Visualized paranasal sinuses and mastoid air cells are clear. Impression: Continued normal CT head without contrast exam.
[2021-01-07 12:52] LABS: Absolute Neutrophil Ct (ANC) 1.22 (1.4-6.9); BASOPHIL % 0.4 % (0.0-0.4); Basophil (Absolute #) 0.01 (0-0.4); Eosinophil % 0.9 % (0.00-5.0); Eosinophil (Absolute #) 0.02 (0-0.5); Hematocrit 40.7 % (35-47); Hemoglobin 13.2 gm/dl (12.0-16.0); Lymphocytes % 38.3 % (24.0-44.0); Mean Cell Volume 90.4 fl (78-100); Mean Corpuscular Hemoglobin 29.3 pg (26-32); Mean Corpuscular Hgb Concent. 32.4 g/dl (32-36); Mean Platelet Volume 10.6 fl (7.5-11.0); Monocytes % 8.5 % (0.0-12.0); Neutrophil % 51.9 % (36.0-66.0); Platelet Count 161 K/mm3 (150-450); Red Cell Distribution Width 13.1 % (11.5-14.0); White Blood Count 2.4 K/mm3 (4.0-10.5)
--- NOTE | 2021-01-07 13:03 | XRAY ---
Indication: Cough and short of breath. Comparison: May 16, 2019. Portable chest again demonstrates normal heart and lungs. Bony thorax intact again with mild scoliosis. No new/acute findings.
[2021-01-07 13:05] LABS: ALBUMIN 4.1 g/dL (3.5-5.0); ALKALINE PHOSPHATASE 87 U/L (38-126); ANION GAP 12.3 MEQ/L (5-15); BLOOD UREA NITROGEN 11 mg/dL (7-17); CHLORIDE 99 mmol/L (98-107); Carbon Dioxide 29 mmol/L (22-30); Creatinine 1 0.64 mg/dL (0.52-1.04); EST GLOMERULAR FILTRATION RATE > 60.0 ML/MIN; Glucose 79 mg/dL (74-106); Potassium 3.4 mmol/L (3.5-5.1); SGOT/AST 54 U/L (14-36); SGPT/ALT 47 U/L (0-35); SODIUM 137 mmol/L (137-145); Total Protein 6.7 g/dL (6.3-8.2)
[2021-01-07 13:09] VITALS: BP 105/67; PULSE 75
[2021-01-07 13:11] LABS: INFLUENZA A NEGATIVE (NEGATIVE); INFLUENZA B NEGATIVE (NEGATIVE)
[2021-01-07 13:12] LABS: Appearance SLIGHTLY CLOUDY (CLEAR); Bacteria RARE /HPF (NEGATIVE); Bilirubin NEGATIVE (NEGATIVE); Blood NEGATIVE Ery/ul (0-5); Epithelial Cells RARE /HPF (FEW); Glucose NEGATIVE (NEGATIVE); Ketones NEGATIVE (NEGATIVE); Leukocyte Esterase NEGATIVE (NEGATIVE); Mucus SLIGHT /HPF (NEGATIVE); Nitrite NEGATIVE (NEGATIVE); Protein,Urine Dip NEGATIVE (Negative); Specific Gravity 1.014 (1.005-1.025); Urobilinogen 2 mg/dL (0-1)
[2021-01-07 13:47] VITALS: O2SAT 96
[2021-01-07] MEDS ORDERED: Zofran 4 MG/2 ML VIAL IV ONE (13:48)
[2021-01-07] MEDS ORDERED: Zofran 4 MG/2 ML VIAL ONE (13:49)
== END 2021-01-07 14:17 | disposition home or self-care (01) ==
LOC: ED 11:18
DX: J32.9 Chronic sinusitis, unspecified (principal); G43.109 Migraine with aura, not intractable, without status migrainosus
CPT/HCPCS: 36000; 36415; 70450; 70486; 71045; 80053; 81001; 83605; 84145; 84484; 85025; 85379; 87040; 87400; 87651; 93005; 93041; 94760; 96360; 96374; 96375; 99285; J1885; J2405; J2930

== ENCOUNTER 2021-01-14 16:03 | Emergency (ER) | payer OTHER ==
--- NOTE | 2021-01-14 16:17 | ERPHSYRPT ---
- History of Present Illness Time Seen by Provider: 01/14/21 16:17 Source: patient, EMS Exam Limitations: no limitations Patient Subjective Stated Complaint: pt here for wanting to be come off methadone, her last dose was 3 days ago [facility] recovery Triage Nursing Assessment: pt alert, resp easy. face mask applied, skin w/d/p. Physician History: This is a 30-year-old white female who until 3 days ago was taking her usual methadone daily. However, she is stopped because she wants to detox. Patient was brought to this facility by EMS. Patient denies any other drug or illicit drug use. She has no chest pain. She has no shortness of breath. She feels anxious. Upon arrival to this facility, we did contact a new detox facility in [facility] by the name of [facility]. They wanted to speak with the patient first which we had them do. After the conversation with the patient, they stated that they do have beds and we will do our routine work-up and then send the information to them and they will make a determination at that time. The patient denies suicidal ideation. She denies homicidal ideation. Patient is willing to go on her own. Timing/Duration: day(s) (Few) Severity: mild (To moderate) Associated Symptoms: weakness, other (Anxiety) Allergies/Adverse Reactions: codeine Allergy (Intermediate, Verified 01/14/21 16:13) Rash miconazole nitrate [From Monistat 3] Allergy (Intermediate, Verified 01/14/21 16:13) Swelling buprenorphine [From Butrans] Allergy (Verified 01/14/21 16:13) citalopram [From Celexa] Allergy (Verified 01/14/21 16:13) sertraline [From Zoloft] Allergy (Verified 01/14/21 16:13) diphenhydramine [From Benadryl] Adverse Reaction (Severe, Verified 01/14/21 16:1 3) syncope Home Medications: Methadone HCl [Dolophine HCl] 80 mg PO DAILY 05/12/19 [History] ARIPiprazole [Abilify Mycite] 2 mg PO DAILY 09/25/20 [History] Ondansetron HCl 4 mg PO DAILY 09/25/20 [History] Hx Tetanus, Diphtheria Vaccination/Date Given: Yes Hx Influenza Vaccination/Date Given: Yes Hx Pneumococcal Vaccination/Date Given: No Immunizations Up to Date: Yes Travel Risk - International Travel Have you traveled outside of the country in past 3 weeks: No - Coronavirus Screening Are you exhibiting any of the following symptoms?: No Close contact with a COVID-19 positive Pt in past 14-21 Days: Yes - Vaccine Status Have you recieved a Covid-19 vaccination: Yes 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 - Review of Systems Constitutional: No Symptoms Eyes: No Symptoms Ears, Nose, & Throat: No Symptoms Respiratory: No Symptoms Cardiac: No Symptoms Abdominal/Gastrointestinal: No Symptoms Genitourinary Symptoms: No Symptoms Musculoskeletal: No Symptoms Skin: No Symptoms Neurological: Other (Anxiety) Psychological: No Symptoms Endocrine: No Symptoms Hematologic/Lymphatic: No Symptoms Immunological/Allergic: No Symptoms All Other Systems: Reviewed and Negative - Past Medical History Pertinent Past Medical History: Yes Neurological History: No Pertinent History ENT History: No Pertinent History Cardiac History: No Pertinent History Respiratory History: No Pertinent History Endocrine Medical History: No Pertinent History Musculoskeletal History: No Pertinent History GI Medical History: Pancreatitis, Other History: No Pertinent History Psycho-Social History: No Pertinent History Female Reproductive Disorders: No Pertinent History Other Medical History: lupus, constipation - Past Surgical History Past Surgical History: Yes Neuro Surgical History: No Pertinent History Cardiac: No Pertinent History Respiratory: No Pertinent History Gastrointestinal: Cholecystectomy Genitourinary: No Pertinent History Musculoskeletal: No Pertinent History Female Surgical History: Other Other Surgical History: LEEP Procedure;. CERVICAL ABLATION - Social History Smoking Status: Current every day smoker How long have you smoked: 1 pack Exposure to second hand smoke: Yes Alcohol Use: Socially Drug Use: none Patient Lives Alone: No Significant Family History: no pertinent family hx - Female History Hx Last Menstrual Period: ? Hx Now: No - Nursing Vital Signs Nursing Vital Signs: Initial Vital Signs Temperature 97.5 F 01/14/21 16:05 Pulse Rate 98 H 01/14/21 16:05 Respiratory Rate 18 01/14/21 16:05 Blood Pressure 158/99 01/14/21 16:05 O2 Sat by Pulse Oximetry 95 01/14/21 16:05 Pain Scale Pain Intensity 4 - Physical Exam General Appearance: no apparent distress, alert, anxiety Eye Exam: PERRL/EOMI, eyes nml inspection Ears, Nose, Throat Exam: normal ENT inspection, moist mucous membranes Neck Exam: normal inspection, non-tender, supple, full range of motion Respiratory Exam: normal breath sounds, lungs clear, airway intact, No chest tenderness, No respiratory distress Cardiovascular Exam: regular rate/rhythm, normal heart sounds, normal peripheral pulses Gastrointestinal/Abdomen Exam: soft, normal bowel sounds, No tenderness Pelvic Exam: not done Rectal Exam: not done Back Exam: normal inspection, normal range of motion, No CVA tenderness, No vertebral tenderness Extremity Exam: normal inspection, normal range of motion, pelvis stable Neurologic Exam: alert, oriented x 3, cooperative, anesthesiologist assistant certified II-XII nml as tested, normal mood/affect, nml cerebellar function, nml station & gait, sensation nml Skin Exam: normal color, warm, dry Lymphatic Exam: No adenopathy SpO2 Interpretation: borderline oxygenation SpO2: 95 O2 Delivery: Room Air - Course Nursing assessment & vital signs reviewed: Yes EKG Interpreted by Me: RATE (82), Sinus Rhythm, NORMAL AXIS, NORMAL INTERVALS, NORMAL QRS, NORMAL ST-T, Other (There are no acute ischemic changes on today's EKG. When compared to the EKG dated 01/07/2021 there are no changes.) Ordered Tests: Active Orders 24 hr Category Date Time Status Clean Catch Urine Specimen STAT Care 01/14/21 16:25 Active EKG-ER Only STAT Care 01/14/21 16:25 Active IV Insertion STAT Care 01/14/21 16:25 Active ACETAMINOPHEN Stat Lab 01/14/21 16:59 Completed CBC W DIFF Stat Lab 01/14/21 16:25 Completed CMP Stat Lab 01/14/21 16:59 Completed ETHYL ALCOHOL Stat Lab 01/14/21 16:59 Completed HCG QUALITATIVE,SERUM Stat Lab 01/14/21 17:30 Completed SALICYLATE Stat Lab 01/14/21 16:59 Completed UA W/RFX UR CULTURE Stat Lab 01/14/21 17:13 Ordered Urine Triage Profile Stat Lab 01/14/21 16:26 Ordered Lab/Rad Data: Laboratory Result Diagrams 01/14/21 16:25 01/14/21 16:59 Laboratory Results 01/14/21 01/14/21 01/14/21 Range/Units 17:30 16:59 16:59 WBC (4.0-10.5) K/mm3 RBC (4.1-5.4) M/mm3 Hgb (12.0-16.0) gm/dl Hct (35-47) % MCV (78-100) fl MCH (26-32) pg MCHC (32-36) g/dl RDW (11.5-14.0) % Plt Count (150-450) K/mm3 MPV (7.5-11.0) fl Gran % (36.0-66.0) % Eos # (Auto) (0-0.5) Absolute Lymphs (auto) (1.0-4.6) Absolute Monos (auto) (0.0-1.3) Lymphocytes % (24.0-44.0) % Monocytes % (0.0-12.0) % Eosinophils % (0.00-5.0) % Basophils % (0.0-0.4) % Absolute Granulocytes (1.4-6.9) Basophils # (0-0.4) Sodium 138 (137-145) mmol/L Potassium 3.3 L (3.5-5.1) mmol/L Chloride 98 (98-107) mmol/L Carbon Dioxide 19 L (22-30) mmol/L Anion Gap 25.4 H (5-15) MEQ/L BUN 8 (7-17) mg/dL Creatinine 0.56 (0.52-1.04) mg/dL Estimated GFR > 60.0 ML/MIN Glucose 74 (74-106) mg/dL Calcium 9.8 (8.4-10.2) mg/dL Total Bilirubin 0.60 (0.2-1.3) mg/dL AST 41 H (14-36) U/L ALT 40 H (0-35) U/L Alkaline Phosphatase 106 (38-126) U/L Serum Total Protein 8.3 H (6.3-8.2) g/dL Albumin 4.7 (3.5-5.0) g/dL Serum , Qual NEGATIVE (Negative) Salicylates 4.4 (2-20) mg/dL Acetaminophen < 10 L (10-30) ug/ml Ethyl Alcohol < 10 (0-10) mg/dL SARS-CoV-2 Ag (Rapid) POSITIVE A* (NEGATIVE) 01/14/21 Range/Units 16:25 WBC 9.4 (4.0-10.5) K/mm3 RBC 4.79 (4.1-5.4) M/mm3 Hgb 13.6 (12.0-16.0) gm/dl Hct 42.6 (35-47) % MCV 88.9 (78-100) fl MCH 28.4 (26-32) pg MCHC 31.9 L (32-36) g/dl RDW 13.2 (11.5-14.0) % Plt Count 341 (150-450) K/mm3 MPV 10.3 (7.5-11.0) fl Gran % 85.2 H (36.0-66.0) % Eos # (Auto) 0.01 (0-0.5) Absolute Lymphs (auto) 0.94 L (1.0-4.6) Absolute Monos (auto) 0.43 (0.0-1.3) Lymphocytes % 10.0 L (24.0-44.0) % Monocytes % 4.6 (0.0-12.0) % Eosinophils % 0.1 (0.00-5.0) % Basophils % 0.1 (0.0-0.4) % Absolute Granulocytes 8.02 H (1.4-6.9) Basophils # 0.01 (0-0.4) Sodium (137-145) mmol/L Potassium (3.5-5.1) mmol/L Chloride (98-107) mmol/L Carbon Dioxide (22-30) mmol/L Anion Gap (5-15) MEQ/L BUN (7-17) mg/dL Creatinine (0.52-1.04) mg/dL Estimated GFR ML/MIN Glucose (74-106) mg/dL Calcium (8.4-10.2) mg/dL Total Bilirubin (0.2-1.3) mg/dL AST (14-36) U/L ALT (0-35) U/L Alkaline Phosphatase (38-126) U/L Serum Total Protein (6.3-8.2) g/dL Albumin (3.5-5.0) g/dL Serum , Qual (Negative) Salicylates (2-20) mg/dL Acetaminophen (10-30) ug/ml Ethyl Alcohol (0-10) mg/dL SARS-CoV-2 Ag (Rapid) (NEGATIVE) - Progress Progress: unchanged Progress Note: 01/14/21 17:46 Medical decision making: We were performing our work-up for the possibility of transferring this patient to a detox center. However, the patient's Covid 19 viral and infection test came back positive. The patient is stable. She has been weaning herself off of her 80 mg methadone daily. She would like a single dose of methadone 50 mg orally 1 time. She will then contact her clinic tomorrow to make arrangements for further weaning directions/instructions. Counseled pt/family regarding: lab results, diagnosis, need for follow-up - Departure Departure Disposition: Home Clinical Impression: Methadone dependence Condition: Stable Critical Care Time: No Referrals: ANGIE WYATT MD [COURTESY STAFF] - Additional Instructions: Call your methadone clinic tomorrow to obtain further instructions for the methadone weaning process and for other management issues.
[2021-01-14 16:58] LABS: Absolute Neutrophil Ct (ANC) 8.02 (1.4-6.9); BASOPHIL % 0.1 % (0.0-0.4); Basophil (Absolute #) 0.01 (0-0.4); Eosinophil % 0.1 % (0.00-5.0); Eosinophil (Absolute #) 0.01 (0-0.5); Hematocrit 42.6 % (35-47); Hemoglobin 13.6 gm/dl (12.0-16.0); Lymphocyte (Absolute #) 0.94 (1.0-4.6); Mean Cell Volume 88.9 fl (78-100); Mean Corpuscular Hemoglobin 28.4 pg (26-32); Mean Corpuscular Hgb Concent. 31.9 g/dl (32-36); Mean Platelet Volume 10.3 fl (7.5-11.0); Monocyte (Absolute #) 0.43 (0.0-1.3); Monocytes % 4.6 % (0.0-12.0); Neutrophil % 85.2 % (36.0-66.0); Platelet Count 341 K/mm3 (150-450); Red Blood Count 4.79 M/mm3 (4.1-5.4); Red Cell Distribution Width 13.2 % (11.5-14.0); White Blood Count 9.4 K/mm3 (4.0-10.5)
[2021-01-14 17:14] LABS: ACETAMINOPHEN < 10 ug/ml (10-30); ALBUMIN 4.7 g/dL (3.5-5.0); ALKALINE PHOSPHATASE 106 U/L (38-126); ANION GAP 25.4 MEQ/L (5-15); BLOOD UREA NITROGEN 8 mg/dL (7-17); CHLORIDE 98 mmol/L (98-107); Calcium 9.8 mg/dL (8.4-10.2); Carbon Dioxide 19 mmol/L (22-30); Creatinine 1 0.56 mg/dL (0.52-1.04); EST GLOMERULAR FILTRATION RATE > 60.0 ML/MIN; ETHYL ALCOHOL < 10 mg/dL (0-10); Glucose 74 mg/dL (74-106); Potassium 3.3 mmol/L (3.5-5.1); SALICYLATE 4.4 mg/dL (2-20); SGOT/AST 41 U/L (14-36); SGPT/ALT 40 U/L (0-35); SODIUM 138 mmol/L (137-145); Total Protein 8.3 g/dL (6.3-8.2)
[2021-01-14 17:34] LABS: COVID AG -BINAX NOW RAPID TEST POSITIVE (NEGATIVE)
[2021-01-14] MEDS ORDERED: DOLOPHINE 10MG Tablet PO ONE (17:46)
[2021-01-14 18:39] LABS: Appearance SLIGHTLY CLOUDY (CLEAR); Bacteria RARE /HPF (NEGATIVE); Bilirubin NEGATIVE (NEGATIVE); Blood NEGATIVE Ery/ul (0-5); Epithelial Cells RARE /HPF (FEW); Glucose NEGATIVE (NEGATIVE); Ketones MODERATE (NEGATIVE); Leukocyte Esterase NEGATIVE (NEGATIVE); Mucus SLIGHT /HPF (NEGATIVE); Nitrite NEGATIVE (NEGATIVE); Protein,Urine Dip 100 (Negative); RBC 0-2 /HPF (0-2); Specific Gravity 1.021 (1.005-1.025); Urobilinogen NEGATIVE mg/dL (0-1); WBC 0-2 /HPF (0-5)
[2021-01-14 18:52] LABS: Amphetamine,Urine NEGATIVE (NEGATIVE); Barbiturate,Urine NEGATIVE (NEGATIVE); Benzodiazepine,Urine NEGATIVE (NEGATIVE); Cocaine,Urine NEGATIVE (NEGATIVE); Methadone,Urine POSITIVE (NEGATIVE); Opiate,Urine NEGATIVE (NEGATIVE); PCP,Urine NEGATIVE (NEGATIVE); THC,Urine NEGATIVE (NEGATIVE)
[2021-01-14 19:03] VITALS: BP 123/90; PULSE 78; O2SAT 97
== END 2021-01-14 19:03 | disposition home or self-care (01) ==
LOC: ED 16:03
DX: F11.20 Opioid dependence, uncomplicated (principal); U07.1 COVID-19; F41.9 Anxiety disorder, unspecified; R53.1 Weakness; F17.200 Nicotine dependence, unspecified, uncomplicated
CPT/HCPCS: 36415; 80053; 80307; 81001; 81025; 85025; 93005; 99000; 99284; G0480; A9270-GY

== ENCOUNTER 2021-02-25 13:54 | Emergency (ER) | payer OTHER ==
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
[2021-02-25 15:10] VITALS: BP 118/89; PULSE 92; O2SAT 96
== END 2021-02-25 15:20 | disposition home or self-care (01) ==
LOC: ED 13:54
DX: S09.90XA Unspecified injury of head, initial encounter (principal); V89.2XXA Person injured in unspecified motor-vehicle accident, traffic, initial encounter; Y93.9 Activity, unspecified; Y92.9 Unspecified place or not applicable
CPT/HCPCS: 70450; 99283

== ENCOUNTER 2022-06-04 02:37 | Emergency (ER) | payer OTHER ==
[2022-06-04 04:03] LABS: Absolute Neutrophil Ct (ANC) 4.76 x10^3/uL (1.4-6.9); BASOPHIL % 0.7 % (0.0-0.4); Basophil (Absolute #) 0.06 x10^3/uL (0-0.4); Eosinophil % 1.2 % (0.00-5.0); Hematocrit 45.4 % (35-47); Hemoglobin 14.7 g/dL (12.0-16.0); IMMATURE GRAN # 0.03 x10^3u/L (0.00-0.03); IMMATURE GRAN % 0.4 % (0.00-0.4); Lymphocyte (Absolute #) 2.98 x10^3/uL (1.0-4.6); Lymphocytes % 35.8 % (24.0-44.0); Mean Cell Volume 91.9 fL (78-100); Mean Corpuscular Hemoglobin 29.8 pg (26-32); Mean Corpuscular Hgb Concent. 32.4 g/dL (32-36); Mean Platelet Volume 9.6 fL (7.5-11.0); Monocytes % 4.8 % (0.0-12.0); Neutrophil % 57.1 % (36.0-66.0); Platelet Count 329 x10^3/uL (150-450); Red Blood Count 4.94 x10^6/uL (4.1-5.4); Red Cell Distribution Width 12.3 % (11.5-14.0); White Blood Count 8.3 x10^3/uL (4.0-10.5)
[2022-06-04 04:04] LABS: ALBUMIN 4.6 g/dL (3.5-5.0); ALKALINE PHOSPHATASE 156 U/L (38-126); ANION GAP 9.4 MEQ/L (5-15); BLOOD UREA NITROGEN 14 mg/dL (7-17); CHLORIDE 101 mmol/L (98-107); Calcium 9.2 mg/dL (8.4-10.2); Carbon Dioxide 30 mmol/L (22-30); Creatinine 1 0.76 mg/dL (0.52-1.04); EST GLOMERULAR FILTRATION RATE > 60.0 ML/MIN; Glucose 97 mg/dL (74-106); NT PRO BNP 28.9 pg/mL (0-450); Potassium 3.8 mmol/L (3.5-5.1); SGOT/AST 104 U/L (14-36); SGPT/ALT 80 U/L (0-35); SODIUM 137 mmol/L (137-145); Total Protein 8.2 g/dL (6.3-8.2)
--- NOTE | 2022-06-04 04:41 | ERPHSYRPT ---
- History of Present Illness Time Seen by Provider: 06/04/22 04:48 Historian: patient Exam Limitations: no limitations Patient Subjective Stated Complaint: pt states my blood pressure was 180/120s Triage Nursing Assessment: pt ambulated into the er; pt is axo x4; c/o HTN; pt denies pain, denies chest pain; clear apical heart tone; clear lung sounds in all lobes; no respiratory distress present; skin PDW; vitals wnl Physician History: Patient is a 31-year-old female presents to emergency department for evaluation of hypertension. Patient states she experienced a bout of chest pain earlier in the day no active chest pain at this time. Patient took a 0.1 mg clonidine at home 240 in the morning. Patient concerned regarding her blood pressure. No nausea vomiting or diaphoresis. No numbness tingling or weakness. Symptoms are mild in intensity. No specific worsening improving factors. Patient denies a history of the same. She voices no other complaints or concerns at this time. Portions of this note were created with voice recognition technology. There may be grammatical, spelling, punctuation or sound alike errors Timing/Duration: today Activities at Onset: none Quality: aching Location: substernal Chest Pain Radiation: no radiation Severity of Pain-Max: moderate Severity of Pain-Current: mild Modifying Factors: Improves With: nothing Associated Symptoms: denies symptoms Prior Chest Pain/Cardiac Workup: no prior chest pain Nitro Today/Relief: no nitro taken today Aspirin Treatment Today: no aspirin today Allergies/Adverse Reactions: codeine Allergy (Intermediate, Verified 06/04/22 02:48) Rash miconazole nitrate [From Monistat 3] Allergy (Intermediate, Verified 06/04/22 02:48) Swelling buprenorphine [From Butrans] Allergy (Verified 06/04/22 02:48) citalopram [From Celexa] Allergy (Verified 06/04/22 02:48) sertraline [From Zoloft] Allergy (Verified 06/04/22 02:48) diphenhydramine [From Benadryl] Adverse Reaction (Severe, Verified 06/04/22 02:48) syncope Home Medications: Methadone HCl [Dolophine HCl] 80 mg PO DAILY 05/12/19 [History] ARIPiprazole [Abilify Mycite] 2 mg PO DAILY 09/25/20 [History] Buspirone HCl 1 ea DAILY 02/25/21 [History] Divalproex Sodium [Depakote] 1 ea DAILY 02/25/21 [History] Escitalopram Oxalate [Lexapro] 1 ea DAILY 02/25/21 [History] Ropinirole HCl 1 ea DAILY 02/25/21 [History] methocarbamoL [Methocarbamol] 1 ea DAILY 02/25/21 [History] Hx Tetanus, Diphtheria Vaccination/Date Given: Yes Hx Influenza Vaccination/Date Given: No Hx Pneumococcal Vaccination/Date Given: No Travel Risk - International Travel Have you traveled outside of the country in past 3 weeks: No - Coronavirus Screening Are you exhibiting any of the following symptoms?: No Close contact with a COVID-19 positive Pt in past 14-21 Days: No - Vaccine Status Have you recieved a Covid-19 vaccination: Yes 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 - Review of Systems Constitutional: No Symptoms, No Fever, No Chills Eyes: No Symptoms Ears, Nose, & Throat: No Symptoms Respiratory: No Symptoms, No Cough, No Dyspnea Cardiac: No Symptoms, No Chest Pain, No Edema, No Syncope Abdominal/Gastrointestinal: No Symptoms, No Abdominal Pain, No Nausea, No Vomiting, No Diarrhea Genitourinary Symptoms: No Symptoms, No Dysuria Musculoskeletal: No Symptoms, No Back Pain, No Neck Pain Skin: No Symptoms, No Rash Neurological: No Symptoms, No Dizziness, No Focal Weakness, No Sensory Changes Psychological: No Symptoms Endocrine: No Symptoms Hematologic/Lymphatic: No Symptoms Immunological/Allergic: No Symptoms All Other Systems: Reviewed and Negative - Past Medical History Pertinent Past Medical History: Yes Neurological History: No Pertinent History ENT History: No Pertinent History Cardiac History: No Pertinent History Respiratory History: No Pertinent History Endocrine Medical History: No Pertinent History Musculoskeletal History: No Pertinent History GI Medical History: Pancreatitis, Other History: No Pertinent History Psycho-Social History: Depression Female Reproductive Disorders: No Pertinent History Other Medical History: lupus, constipation - Past Surgical History Past Surgical History: Yes Neuro Surgical History: No Pertinent History Cardiac: No Pertinent History Respiratory: No Pertinent History Gastrointestinal: Cholecystectomy Genitourinary: No Pertinent History Musculoskeletal: No Pertinent History Female Surgical History: Section, Other Other Surgical History: LEEP Procedure;. CERVICAL ABLATION - Social History Smoking Status: Current every day smoker How long have you smoked: 1 pack Exposure to second hand smoke: Yes Alcohol Use: Socially Drug Use: none Patient Lives Alone: No Significant Family History: no pertinent family hx - Female History Hx Now: No - Nursing Vital Signs Nursing Vital Signs: Initial Vital Signs Temperature 97.6 F 06/04/22 02:50 Pulse Rate 102 H 06/04/22 02:50 Respiratory Rate 18 06/04/22 02:50 Blood Pressure 145/100 06/04/22 02:50 O2 Sat by Pulse Oximetry 97 06/04/22 02:50 Pain Scale Pain Intensity 0 - Physical Exam General Appearance: no apparent distress, alert Eye Exam: PERRL/EOMI, eyes nml inspection Ears, Nose, Throat Exam: normal ENT inspection, TMs normal, pharynx normal, moist mucous membranes Neck Exam: normal inspection, non-tender, supple, full range of motion Respiratory Exam: normal breath sounds, lungs clear, airway intact, No respir atory distress Cardiovascular Exam: regular rate/rhythm, normal heart sounds, normal peripheral pulses Gastrointestinal/Abdomen Exam: soft, normal bowel sounds, No tenderness, No mass Back Exam: normal inspection, No CVA tenderness, No vertebral tenderness Extremity Exam: normal inspection, normal range of motion, other (Dry skin secondary to eczema) Neurologic Exam: alert, oriented x 3, cooperative, normal mood/affect, sensation nml, No motor deficits Skin Exam: normal color, warm, dry Lymphatic Exam: No adenopathy SpO2 Interpretation: normal SpO2: 98 O2 Delivery: Room Air - Course Nursing assessment & vital signs reviewed: Yes EKG Interpreted by Me: RATE (102), Sinus Tach, NORMAL AXIS, NORMAL INTERVALS - Radiology Exams Chest X-ray Interpretation: Interpreted by me (Normal chest x-ray) Ordered Tests: Active Orders 24 hr Category Date Time Status Space Planner STAT Care 06/04/22 03:10 Active EKG-ER Only STAT Care 06/04/22 03:09 Active IV Insertion STAT Care 06/04/22 03:09 Active Pulse Oximetry (ED) STAT Care 06/04/22 03:09 Active CHEST 1 VIEW (PORTABLE) Stat Exams 06/04/22 03:10 Ordered CBC W DIFF Stat Lab 06/04/22 03:30 Completed CMP Stat Lab 06/04/22 03:30 Completed D-DIMER QUANTITATIVE Stat Lab 06/04/22 03:30 Completed NT PRO BNP Stat Lab 06/04/22 03:30 Completed TROPONIN Q4H Lab 06/04/22 03:30 Completed TROPONIN Q4H Lab 06/04/22 05:27 Received TROPONIN Q4H Lab 06/04/22 11:15 Ordered Lab/Rad Data: Laboratory Result Diagrams 06/04/22 03:30 06/04/22 03:30 Laboratory Results 06/04/22 06/04/22 06/04/22 Range/Units 03:30 03:30 03:30 WBC (4.0-10.5) x10^3/uL RBC (4.1-5.4) x10^6/uL Hgb (12.0-16.0) g/dL Hct (35-47) % MCV (78-100) fL MCH (26-32) pg MCHC (32-36) g/dL RDW (11.5-14.0) % Plt Count (150-450) x10^3/uL MPV (7.5-11.0) fL Gran % (36.0-66.0) % Immature Gran % (Auto) (0.00-0.4) % Nucleat RBC Rel Count (0.00-0.1) % Eos # (Auto) (0-0.5) x10^3/uL Immature Gran # (Auto) (0.00-0.03) x10^3u/L Absolute Lymphs (auto) (1.0-4.6) x10^3/uL Absolute Monos (auto) (0.0-1.3) x10^3/uL Absolute Nucleated RBC (0.00-0.01) x10^3u/L Lymphocytes % (24.0-44.0) % Monocytes % (0.0-12.0) % Eosinophils % (0.00-5.0) % Basophils % (0.0-0.4) % Absolute Granulocytes (1.4-6.9) x10^3/uL Basophils # (0-0.4) x10^3/uL D-Dimer 0.24 (0.0-0.50) mg/L Sodium 137 (137-145) mmol/L Potassium 3.8 (3.5-5.1) mmol/L Chloride 101 (98-107) mmol/L Carbon Dioxide 30 (22-30) mmol/L Anion Gap 9.4 (5-15) MEQ/L BUN 14 (7-17) mg/dL Creatinine 0.76 (0.52-1.04) mg/dL Estimated GFR > 60.0 ML/MIN Glucose 97 (74-106) mg/dL Calcium 9.2 (8.4-10.2) mg/dL Total Bilirubin 0.40 (0.2-1.3) mg/dL AST 104 H (14-36) U/L ALT 80 H (0-35) U/L Alkaline Phosphatase 156 H (38-126) U/L Troponin I < 0.012 (0.000-0.034) ng/mL NT-Pro-B Natriuret Pep 28.9 (0-450) pg/mL Serum Total Protein 8.2 (6.3-8.2) g/dL Albumin 4.6 (3.5-5.0) g/dL 06/04/22 Range/Units 03:30 WBC 8.3 (4.0-10.5) x10^3/uL RBC 4.94 (4.1-5.4) x10^6/uL Hgb 14.7 (12.0-16.0) g/dL Hct 45.4 (35-47) % MCV 91.9 (78-100) fL MCH 29.8 (26-32) pg MCHC 32.4 (32-36) g/dL RDW 12.3 (11.5-14.0) % Plt Count 329 (150-450) x10^3/uL MPV 9.6 (7.5-11.0) fL Gran % 57.1 (36.0-66.0) % Immature Gran % (Auto) 0.4 (0.00-0.4) % Nucleat RBC Rel Count 0.0 (0.00-0.1) % Eos # (Auto) 0.10 (0-0.5) x10^3/uL Immature Gran # (Auto) 0.03 (0.00-0.03) x10^3u/L Absolute Lymphs (auto) 2.98 (1.0-4.6) x10^3/uL Absolute Monos (auto) 0.40 (0.0-1.3) x10^3/uL Absolute Nucleated RBC 0.00 (0.00-0.01) x10^3u/L Lymphocytes % 35.8 (24.0-44.0) % Monocytes % 4.8 (0.0-12.0) % Eosinophils % 1.2 (0.00-5.0) % Basophils % 0.7 (0.0-0.4) % Absolute Granulocytes 4.76 (1.4-6.9) x10^3/uL Basophils # 0.06 (0-0.4) x10^3/uL D-Dimer (0.0-0.50) mg/L Sodium (137-145) mmol/L Potassium (3.5-5.1) mmol/L Chloride (98-107) mmol/L Carbon Dioxide (22-30) mmol/L Anion Gap (5-15) MEQ/L BUN (7-17) mg/dL Creatinine (0.52-1.04) mg/dL Estimated GFR ML/MIN Glucose (74-106) mg/dL Calcium (8.4-10.2) mg/dL Total Bilirubin (0.2-1.3) mg/dL AST (14-36) U/L ALT (0-35) U/L Alkaline Phosphatase (38-126) U/L Troponin I (0.000-0.034) ng/mL NT-Pro-B Natriuret Pep (0-450) pg/mL Serum Total Protein (6.3-8.2) g/dL Albumin (3.5-5.0) g/dL - Progress Progress: improved Air Movement: good Progress Note: 06/04/22 05:56 Patient is a 31-year-old female presents to emergency department for evaluation of elevated blood pressure and chest pain. Physical exam nonremarkable. No active chest pain at time of this encounter. Patient's complaint was acute in nature. Complexity of complaint is moderate. No significant comorbidities to contribute to patient's symptoms. Laboratory tests ordered include CBC CMP D-dimer BNP troponin. Work-up essentially nonremarkable. Results obtained were used for medical decision making. No positive findings. EKG normal sinus rhythm. Patient declined pain medication. Plan of care discussed with patient. Patient agrees to follow-up with her primary care doctor within 48 hours for evaluation. Patient has a means inability to follow through with plan of care. Level of EM service provided was moderate. Complexity of problem addressed is moderate. Complexity of data reviewed and analyzed is moderate. Risk of complications and or risk of morbidity/mortality of patient management is low. No critical care time. Patient served as an independent historian. Although mother at bedside assisted with information for the history of present illness. Time spent during discharge is approximately 10 minutes. Discharge diagnoses chest pain not otherwise specified. Troponin negative x2. Patient's heart score is 1. Low risk of mace. Will discharge home. Portions of this note were created with voice recognition technology. There may be grammatical, spelling, punctuation or sound alike errors 06/04/22 05:57 Blood Culture(s) Obtained: No Antibiotics given: No Counseled pt/family regarding: lab results, diagnosis, need for follow-up, rad results - Departure Departure Disposition: Home (Transaminitis) Clinical Impression: Chest pain, High blood pressure, Transaminitis, Elevated alkaline phosphatase level Condition: Stable Critical Care Time: No Referrals: DOCTOR,NO FAMILY [Primary Care Provider] - Follow up/PCP as directed ALBA DOZIER MD [ACTIVE STAFF] - Follow up/PCP as directed Additional Instructions: Discharge/Care Plan KEVIN GRULLON RADHA was seen on 06/04/22 in the Emergency Room. The patient was counseled regarding Diagnosis,Lab results, Imaging studies, need for follow up and when to return to the Emergency Room. Prescriptions given: Discharge Note I have spoken with the patient and/or caregivers. I have explained the patient's condition, diagnosis and treatment plan based on the information available to me at this time. I have answered the patient's and/or caregiver's questions and addressed any concerns. The patient and/or caregivers have as good understanding of the patient's diagnosis, condition and treatment plan as can be expected at this point. The vital signs have been stable. The patient's condition is stable and appropriate for discharge from the emergency department. The patient will pursue further outpatient evaluation with the primary care physician or other designated or consulting physician as outlined in the discharge instructions. The patient and/or caregivers are agreeable to this plan of care and follow-up instructions have been explained in detail. The patient and/or caregivers have received these instruction. The patient/and or caregivers are aware that any significant change in condition or worsening of symptoms should prompt an immediate return to this or the closest emergency department or call 911.
[2022-06-04 06:01] VITALS: O2SAT 98
[2022-06-04 06:08] VITALS: BP 112/83; PULSE 84
--- NOTE | 2022-06-04 08:20 | XRAY ---
Indication: Chest pain. Comparison: January 07, 2021 Portable chest less inflated and remains clear. Heart not enlarged. Bony thorax intact. No new/acute findings.
== END 2022-06-04 06:15 | disposition home or self-care (01) ==
LOC: ED 02:37
DX: I10 Essential (primary) hypertension (principal); R07.9 Chest pain, unspecified; R74.01 Elevation of levels of liver transaminase levels; R74.8 Abnormal levels of other serum enzymes; Z79.891 Long term (current) use of opiate analgesic; Z79.899 Other long term (current) drug therapy; Z72.0 Tobacco use
CPT/HCPCS: 36000; 36415; 71045; 80053; 83880; 84484; 85025; 85379; 93005; 93041; 94760; 99284

== ENCOUNTER 2024-07-25 01:26 | Emergency (ER) | payer SELFPAY ==
--- NOTE | 2024-07-25 01:38 | ERPHSYRPT ---
- History of Present Illness Time Seen by Provider: 07/25/24 01:38 Source: patient Exam Limitations: no limitations Physician History: This is a 34-year-old white female patient who presents to the emergency department by private vehicle secondary to complaints of generalized skin rash that itches. She has had this in the past and was treated with prednisone and triamcinolone and eventually cleared up. Patient states that at approximately 6 PM last evening she did take diphenhydramine. However, she states that she is allergic to Benadryl. She has taken hydroxyzine in the past but states that it does not work for her. She is on a daily Zyrtec at this time. She has no respiratory issues or respiratory compromise. Patient is a daily smoker of tobacco cigarettes. Her past medical history report is significant for lupus, depression and pancreatitis. 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) Associated Symptoms: change in skin texture Allergies/Adverse Reactions: codeine Allergy (Intermediate, Verified 07/25/24 01:33) Rash miconazole nitrate [From Monistat 3] Allergy (Intermediate, Verified 07/25/24 01:33) Swelling buprenorphine [From Butrans] Allergy (Verified 07/25/24 01:33) citalopram [From Celexa] Allergy (Verified 07/25/24 01:33) sertraline [From Zoloft] Allergy (Verified 07/25/24 01:33) diphenhydramine [From Benadryl] Adverse Reaction (Severe, Verified 07/25/24 01:33) syncope Home Medications: ARIPiprazole [Abilify Mycite] 2 mg PO DAILY 09/25/20 [History] Buspirone HCl 5 mg PO BID 02/25/21 [History] Escitalopram Oxalate [Lexapro] 1 ea DAILY 02/25/21 [History] Ropinirole HCl 1 ea DAILY 02/25/21 [History] Cetirizine HCl [Zyrtec] 10 mg PO DAILY PRN PRN 07/25/24 [History] Hx Tetanus, Diphtheria Vaccination/Date Given: Yes Hx Influenza Vaccination/Date Given: No Hx Pneumococcal Vaccination/Date Given: No Travel Risk - International Travel Have you traveled outside of the country in past 3 weeks: No - Emerging Infectious Disease Are you exhibiting symptoms associated with any current EIDs: No - Review of Systems Constitutional: No Symptoms Eyes: No Symptoms Ears, Nose, & Throat: No Symptoms Respiratory: No Symptoms Cardiac: No Symptoms Abdominal/Gastrointestinal: No Symptoms Genitourinary Symptoms: No Symptoms Skin: Pruritis, Rash (Generalized coalesced slightly raised pink rash) Neurological: No Symptoms Psychological: No Symptoms Endocrine: No Symptoms Hematologic/Lymphatic: No Symptoms Immunological/Allergic: No Symptoms All Other Systems: Reviewed and Negative - Past Medical History Pertinent Past Medical History: Yes Neurological History: No Pertinent History ENT History: No Pertinent History Cardiac History: No Pertinent History Respiratory History: No Pertinent History Endocrine Medical History: No Pertinent History Musculoskeletal History: No Pertinent History GI Medical History: Pancreatitis, Other History: No Pertinent History Psycho-Social History: Depression Female Reproductive Disorders: No Pertinent History Other Medical History: lupus, constipation - Past Surgical History Past Surgical History: Yes Neuro Surgical History: No Pertinent History Cardiac: No Pertinent History Respiratory: No Pertinent History Gastrointestinal: Cholecystectomy Genitourinary: No Pertinent History Musculoskeletal: No Pertinent History Female Surgical History: Section, Other Other Surgical History: LEEP Procedure;. CERVICAL ABLATION Significant Family History: no pertinent family hx - Female History Hx Last Menstrual Period: CURRENTLY - Social History Smoking Status: Current every day smoker How long have you smoked: 1 pack Exposure to second hand smoke: Yes Alcohol Use: Socially Drug Use: none Patient Lives Alone: No - Nursing Vital Signs Nursing Vital Signs: Initial Vital Signs Temperature 99.1 F 07/25/24 01:34 Pulse Rate 105 H 07/25/24 01:34 Respiratory Rate 22 07/25/24 01:34 Blood Pressure 175/105 07/25/24 01:34 O2 Sat by Pulse Oximetry 100 07/25/24 01:34 Pain Scale Pain Intensity 0 - Physical Exam General Appearance: no apparent distress, alert Eye Exam: PERRL/EOMI, eyes nml inspection Ears, Nose, Throat Exam: normal ENT inspection, moist mucous membranes Neck Exam: normal inspection, non-tender, supple, full range of motion Respiratory Exam: normal breath sounds, lungs clear, airway intact, No chest tenderness, No respiratory distress Cardiovascular Exam: regular rate/rhythm, normal heart sounds, normal peripheral pulses Gastrointestinal/Abdomen Exam: soft, normal bowel sounds, No tenderness Pelvic Exam: not done Rectal Exam: not done Back Exam: normal inspection, normal range of motion, No CVA tenderness, No vertebral tenderness Extremity Exam: normal inspection, normal range of motion, pelvis stable Neurologic Exam: alert, oriented x 3, cooperative, supervisor patching II-XII nml as tested, nml cerebellar function, nml station & gait, sensation nml Skin Exam: normal color, warm, dry Lymphatic Exam: No adenopathy SpO2 Interpretation: normal O2 Delivery: Room Air - Course Nursing assessment & vital signs reviewed: Yes Ordered Tests: Medication Summary Discontinued Medications Generic Name Dose Route Start Last Admin Trade Name Freq PRN Reason Stop Dose Admin Methylprednisolone Sodium 0 mg 07/25/24 02:08 Succinate 125 mg/ Sterile IM 07/25/24 02:09 Water 2 ml STAT ONE Famotidine 40 mg 07/25/24 02:08 Famotidine 20 Mg Tablet PO 07/25/24 02:09 STAT ONE Hydroxyzine HCl 50 mg 07/25/24 02:08 Hydroxyzine Hcl 25 Mg Tablet PO 07/25/24 02:09 STAT ONE - Progress Progress: unchanged Progress Note: 07/25/24 02:20 9 medical decision making and the assignment of low complexity to this patient's medical issue today is based on review of the patient's past medical history, review of the patient's medication list, review of the patient's drug allergy list, history of the present illness and physical findings on examination. No radiographic or laboratory studies are necessary in the workup of this patient. Differential diagnosis includes but is not limited to allergic reaction, contact dermatitis, hives Counseled pt/family regarding: diagnosis, need for follow-up Medical Desision Making - Diagnostic Testing Diagnostic test were ordered, analyzed, and reviewed by me: No - Risk of complications The pt has a mod risk of morbidity or mortality based on: Need for prescription drug management - Departure Departure Disposition: Home Clinical Impression: Contact dermatitis Condition: Stable Critical Care Time: No Referrals: DOCTOR,NO FAMILY [Primary Care Provider] - Follow up/PCP as directed Additional Instructions: Avoid contact with the hand motorcycle designer causing this issue. Take the steroids, Pepcid and hydroxyzine as prescribed. Make an appointment with a primary care provider to discuss management of this recurrent issue and possible referral to diploma medical assistant and/or journal box inspector. Prescriptions: Hydroxyzine HCl 25 mg [Atarax 25 mg] 25 mg PO Q6H PRN #12 tablet PRN Reason: Itching Prednisone 10 mg [Deltasone 10 mg] 10 mg PO TID #12 tablet Famotidine 20 mg [Pepcid 20 MG] 20 mg PO DAILY #10 tablet
[2024-07-25 01:48] VITALS: TEMP 99.1
[2024-07-25] MEDS ORDERED: Sterile H2O 10 ml IJ ONE (02:15)
[2024-07-25] MEDS ORDERED: solu-MEDROL ONE (02:15)
[2024-07-25] MEDS ORDERED: Pepcid 20 MG ONE (02:15)
[2024-07-25] MEDS ORDERED: ATARAX 25 MG ONE (02:15)
[2024-07-25] MEDS: Pepcid 20 MG PO ONE (02:17)
[2024-07-25] MEDS: ATARAX 25 MG PO ONE (02:17)
[2024-07-25] MEDS: solu-MEDROL 125 MG, Sterile H2O 10 ml 2 ML IM ONE (02:18)
[2024-07-25 02:31] VITALS: BP 143/97; PULSE 96; RESP 20; O2SAT 97
== END 2024-07-25 02:40 | disposition home or self-care (01) ==
LOC: ED 01:26
DX: L25.9 Unspecified contact dermatitis, unspecified cause (principal); Z79.52 Long term (current) use of systemic steroids; Z79.899 Other long term (current) drug therapy; Z72.0 Tobacco use
CPT/HCPCS: 99283; J2919; A9270-GY